=== PATIENT | male | born 1960 | race Caucasian/White ===

== ENCOUNTER 2023-03-04 20:04 | Inpatient (IN) | payer BC ==
[2023-03-04] MEDS ORDERED: ASPIRIN 81 MG PO STA (20:14)
[2023-03-04] MEDS ORDERED: SODIUM CHLORIDE 0.9% 1,000 ML IV STA (20:14)
--- NOTE | 2023-03-04 20:18 | ED ---
Chest Pain HPI - General Source: patient, EMS, RN notes reviewed Mode of arrival: EMS - History of Present Illness MD Complaint: chest pain <Oz Kothari - Last Filed: 03/04/23 20:54> <Cong Lindsey - Last Filed: 03/04/23 23:02> - General Stated Complaint: Dizziness, Bradycardia Time Seen by Provider: 03/04/23 20:04 - History of Present Illness Initial Comments: 62-year-old male with a benign past medical history other than smoking and he states he was told he had some type of AV block on his EKG 10 years ago but never diagnosed with official heart or lung disease who states he had the onset after eating around 3 PM today of not feeling well he states he fell he had a low heart rate had some chest tightness are dull chest pain with dizziness he states the pain felt almost like he had squeezing-type pain 6/10 severity does seem to radiate from both inner arms across his chest. No definitive shortness of breath with it EMS was finally called he was found have a blood pressure 93/54. Pale heart rate was in the 50s but did dip down to 48. Glucose level is 153. Of note patient states earlier today he just didn't feel well he has a blood pressure machine at home he had a heart rate in the 40s with an adequate blood pressure. He was given 500 mL of saline and route no aspirin or nitro given. He states he still has pain is 5-6/10 severity repeat blood pressure here was adequate. (Oz Kothari) - Related Data Home Medications Medication Instructions Recorded Confirmed Ascorbic Acid [Vitamin C] 1,000 mg PO HS 03/04/23 03/04/23 Aspirin EC [Ecotrin Low Dose] 81 mg PO HS 03/04/23 03/04/23 Cyanocobalamin (Vitamin B-12) 1,000 mcg PO HS 03/04/23 03/04/23 [Vitamin B-12] [place]-3/Dha/Epa/Fish Oil [Fish Oil 1 cap PO HS 03/04/23 03/04/23 1,000 mg Softgel] Psyllium Husk [Metamucil] 0.4 gm PO HS 03/04/23 03/04/23 Simvastatin [Zocor] 20 mg PO HS 03/04/23 03/04/23 Allergies Allergy/AdvReac Type Severity Reaction Status Date / Time Penicillins AdvReac Nausea & Verified 03/04/23 21:27 Vomiting & Diarrhea Review of Systems ROS Other: All systems not noted in ROS Statement are negative. <TayeOz - Last Filed: 03/04/23 20:54> ROS Other: All systems not noted in ROS Statement are negative. <Cong Lindsey - Last Filed: 03/04/23 23:02> ROS Statement: Those systems with pertinent positive or pertinent negative responses have been documented in the HPI. EKG Findings - EKG Results: EKG: interpreted by ERMD (EKG interpreted by me sinus bradycardia 58 first- degree AV block MO interval 212 QRS duration 102 QT since QTC 461/434 evidence of Q waves in inferior leads this correlates with the one sent from EMS.) <TayeOz - Last Filed: 03/04/23 20:54> General Exam General appearance: alert, anxious Head exam: Present: atraumatic, normocephalic, normal inspection Eye exam: Present: normal appearance, PERRL, EOMI. Absent: scleral icterus, conjunctival injection, periorbital swelling ENT exam: Present: normal exam, mucous membranes moist Neck exam: Present: normal inspection, full ROM, other (Mode stridor JVD or bruits). Absent: tenderness, meningismus, lymphadenopathy Respiratory exam: Present: normal lung sounds bilaterally. Absent: respiratory distress, wheezes, rales, rhonchi, stridor, chest wall tenderness Cardiovascular Exam: Present: regular rate, normal rhythm, normal heart sounds. Absent: systolic murmur, diastolic murmur, rubs, gallop, clicks GI/Abdominal exam: Present: soft, normal bowel sounds. Absent: distended, tenderness, guarding, rebound, rigid, bruit, pulsatile mass Extremities exam: Present: normal inspection, full ROM, normal capillary refill. Absent: tenderness, pedal edema, joint swelling, calf tenderness Back exam: Present: normal inspection Neurological exam: Present: alert, oriented X3, CN II-XII intact Psychiatric exam: Present: normal affect, normal mood Skin exam: Present: warm, dry, intact, normal color. Absent: rash <TayeOz - Last Filed: 03/04/23 20:54> - General Exam Comments Initial Comments: This is a well-developed well-nourished awake alert oriented 4 male (Oz Kothari) Course <Oz Kothari - Last Filed: 03/04/23 20:54> Vital Signs 03/04/23 03/04/23 03/04/23 20:17 20:30 21:02 Temperature 98 F Pulse Rate 52 L 53 L 62 Respiratory 16 15 14 Rate Blood Pressure 137/87 125/78 117/71 O2 Sat by Pulse 98 97 95 Oximetry 03/04/23 03/04/23 22:12 22:35 Temperature Pulse Rate 54 L 57 L Respiratory 14 15 Rate Blood Pressure 117/73 126/80 O2 Sat by Pulse 96 95 Oximetry - Reevaluation(s) Reevaluation #1: 03/04/23 20:54 Patient's care will be endorsed to Dr. Lindsey in her shift change (Oz Kothari) Chest Pain MDM <Cong Lindsey - Last Filed: 03/04/23 23:02> - MDM The patient was signed out to me from Dr. Kothari. The patient was signed out pending completion of the laboratory workup. Please see the previous note for HPI. Was pt. sent in by a medical professional or institution (, PA, ADVERTISING SUPERVISOR, urgent care, hospital, or snf...) When possible be specific @ -No Did you speak to anyone other than the patient for history (EMS, parent, family, police, friend...)? What history was obtained from this source @ -No Did you review nursing and triage notes (agree or disagree)? Why? @ -I reviewed and agree with nursing and triage notes Were old charts reviewed (outside hosp., previous admission, EMS record, old EKG, old radiological studies, urgent care reports/EKG's, snf records)? Report findings @ -No old charts were reviewed Differential Diagnosis (chest pain, altered mental status, abdominal pain women, abdominal pain men, vaginal bleeding, weakness, fever, dyspnea, syncope, headache, dizziness, GI bleed, back pain, seizure, CVA, palpatations, mental health)? @ -ACS, pneumonia, pneumothorax EKG interpreted by me (3pts min.). @ -As above X-rays interpreted by me (1pt min.). @ -Chest x-ray was obtained and was interpreted by myself showing no acute cardiopulmonary process CT interpreted by me (1pt min.). @ -None done U/S interpreted by me (1pt. min.). @ -None done What testing was considered but not performed or refused? (CT, X-rays, U/S, labs)? Why? @ -None What meds were considered but not given or refused? Why? @ -None Did you discuss the management of the patient with other professionals (professionals i.e. , PA, ADVERTISING SUPERVISOR, lab, RT, psych nurse, social science professor, information clerk automobile club, teacher, surveillance officer, shelter case manager)? Give summary @ -No Was smoking cessation discussed for >3mins.? @ -Yes Was critical care preformed (if so, how long)? @ -No Were there social determinants of health that impacted care today? How? (Homelessness, low income, unemployed, alcoholism, drug addiction, transportation, low edu. Level, literacy, decrease access to med. care, usp, rehab)? @ -No Was there de-escalation of care discussed even if they declined (Discuss DNR or withdrawal of care, Hospice)? DNR status @ -No What co-morbidities impacted this encounter? (DM, HTN, Smoking, COPD, CAD, Cancer, CVA, ARF, Chemo, Hep., AIDS, mental health diagnosis, sleep apnea, morbid obesity)? @ -Hypertension, previous cardiac stenting Was patient admitted / discharged? Hospital course, mention meds given and route, prescriptions, significant lab abnormalities, going to OR and other pertinent info. @ -The patient was seen and evaluated emergency department. Physical exam, the patient was resting in bed without any acute distress. The patient was initially seen by Dr. Kothari and was signed out pending completion of laboratory workup. Initial laboratory workup showed an elevated troponin but was reported to be hemolyzed therefore a repeat troponin was obtained and was significantly more elevated. Due to this and in the setting of the patient's elevated troponin, the patient was started on IV heparin and treated as an NSTEMI. The patient will be admitted for further workup and evaluation with cardiology on consult. The patient was agreeable to this. The patient was admitted in stable condition. Undiagnosed new problem with uncertain prognosis? @ -No Drug Therapy requiring intensive monitoring for toxicity (Heparin, Nitro, Insulin, Cardizem)? @ -Heparin Were any procedures done? @ -No Diagnosis/symptom? @ -NSTEMI Acute, or Chronic, or Acute on Chronic? @ -Acute Uncomplicated (without systemic symptoms) or Complicated (systemic symptoms)? @ -Complicated Side effects of treatment? @ -No Exacerbation, Progression, or Severe Exacerbation? @ -No Poses a threat to life or bodily function? How? (Chest pain, [place], [place], pneumonia, PE, COPD, DKA, ARF, appy, cholecystitis, CVA, Diverticulitis, Homicidal, Suicidal, threat to staff... and all critical care pts) @ -Yes, NSTEMI can lead to permanent cardiac damage and possible . (Cong Lindsey) Disposition <Oz Kothari - Last Filed: 03/04/23 20:54> Is patient prescribed a controlled substance at d/c from ED?: No Time of Disposition: 22:30 Decision to Admit Reason: Admit from EC Decision Date: 03/04/23 Decision Time: 22:30 <Cong Lindsey - Last Filed: 03/04/23 23:02> Clinical Impression: NSTEMI (non-ST elevated myocardial infarction) Disposition: ADMITTED IP TO THIS [facility] Condition: Stable Referrals: Aries Uriarte DO [Primary Care Provider] - 1-2 days
[2023-03-04] MEDS: NITROGLYCERIN SL TABS 0.4 MG TAB SUBLINGUAL STA ×3 (20:24→21:02)
[2023-03-04 21:02] LABS: ALT 26 U/L (4-49); African American GFR (CKD) >90 (>60 ml/min/1.73 sqM); Anion Gap 4 mmol/L; Blood Urea Nitrogen 18 mg/dL (9-20); Calcium 9.1 mg/dL (8.4-10.2); Carbon Dioxide 29 mmol/L (22-30); Chloride 104 mmol/L (98-107); Lipase 51 U/L (23-300); Non-African American GFR(CKD) >90 (>60 ml/min/1.73 sqM); Sodium 137 mmol/L (137-145)
[2023-03-04 21:07] LABS: Glucose 124 mg/dL (74-99)
[2023-03-04 21:08] LABS: AST 56 U/L (17-59); Albumin 4.9 g/dL (3.5-5.0); Alkaline Phosphatase 35 U/L (38-126); Magnesium 2.3 mg/dL (1.6-2.3); Total Bilirubin 1.5 mg/dL (0.2-1.3)
--- NOTE | 2023-03-04 21:29 | XR ---
EXAMINATION TYPE: XR chest 2V DATE OF EXAM: 03/04/2023 9:25 PM COMPARISON: None TECHNIQUE: XR chest 2V . CLINICAL INDICATION:Male, 62 years old with history of Chest Pain; FINDINGS: Lungs/Pleura: There is no evidence of pleural effusion, focal consolidation, or pneumothorax. Pulmonary vascularity: Unremarkable. Heart/mediastinum: Cardiomediastinal silhouette is unremarkable. Musculoskeletal: No acute osseous pathology. Degenerative changes of the right acromioclavicular join t. IMPRESSION: No acute cardiopulmonary disease/process.
[2023-03-04 21:35] LABS: Basophils % (A) 0 %; Eosinophils # (A) 0.1 k/uL (0-0.7); Eosinophils % (A) 1 %; HCT 47.2 % (39.0-53.0); HGB 15.8 gm/dL (13.0-17.5); Lymphocytes # (A) 1.4 k/uL (1.0-4.8); Lymphocytes % (A) 14 %; MCH 30.6 pg (25.0-35.0); MCHC 33.4 g/dL (31.0-37.0); MCV 91.7 fL (80.0-100.0); Mean Platelet Volume 9.4; Monocytes # (A) 0.4 k/uL (0-1.0); Monocytes % (A) 4 %; Neutrophils % (A) 79 %; Platelet Count 159 k/uL (150-450); RBC 5.15 m/uL (4.30-5.90); RDW 13.1 % (11.5-15.5); WBC 10.1 k/uL (3.8-10.6)
[2023-03-04 21:52] LABS: Partial Thromboplastin Time 22.2 sec (22.0-30.0); Prothrombin Time 10.7 sec (9.0-12.0)
[2023-03-04] MEDS ORDERED: HEPARIN SODIUM 1,000 UN/ML (10ML VL) IV ONE (22:36)
[2023-03-04] MEDS ORDERED: HEPARIN SODIUM 1,000 UN/ML (10ML VL) IV PRN (22:36)
[2023-03-04] MEDS ORDERED: NALOXONE 0.4 MG/ML 1 ML VIAL IV PRN (22:46)
[2023-03-04] MEDS: HEPARIN SOD,PORK IN 0.45% NACL 25,000 UNIT in 0.45% NACL 1 250ML.BAG IV SCH (22:52)
[2023-03-05 02:02] LABS: African American GFR (CKD) >90 (>60 ml/min/1.73 sqM); Anion Gap 6 mmol/L; Blood Urea Nitrogen 16 mg/dL (9-20); Calcium 8.3 mg/dL (8.4-10.2); Carbon Dioxide 25 mmol/L (22-30); Chloride 111 mmol/L (98-107); Glucose 134 mg/dL (74-99); Non-African American GFR(CKD) >90 (>60 ml/min/1.73 sqM); Potassium 4.1 mmol/L (3.5-5.1); Sodium 142 mmol/L (137-145)
[2023-03-05 08:29] LABS: Basophils % (A) 0 %; Eosinophils # (A) 0.2 k/uL (0-0.7); Eosinophils % (A) 2 %; HCT 41.1 % (39.0-53.0); HGB 13.4 gm/dL (13.0-17.5); Lymphocytes # (A) 2.4 k/uL (1.0-4.8); Lymphocytes % (A) 23 %; MCH 30.4 pg (25.0-35.0); MCHC 32.6 g/dL (31.0-37.0); MCV 93.3 fL (80.0-100.0); Mean Platelet Volume 8.6; Monocytes # (A) 0.6 k/uL (0-1.0); Monocytes % (A) 6 %; Neutrophils % (A) 67 %; Platelet Count 177 k/uL (150-450); RDW 13.2 % (11.5-15.5); WBC 10.4 k/uL (3.8-10.6)
[2023-03-05] MEDS ORDERED: ASPIRIN 325 MG TAB PO STA (08:56)
[2023-03-05] MEDS ORDERED: ALPRAZolam 0.5 MG TAB PO PRN (08:56)
[2023-03-05] MEDS ORDERED: NITROGLYCERIN SL TABS 0.4 MG TAB SUBLINGUAL PRN (08:56)
[2023-03-05] MEDS ORDERED: ATORVASTATIN 80 MG TAB PO STA (08:56)
[2023-03-05] MEDS ORDERED: ALPRAZolam 0.25 MG TAB PO PRN (08:56)
--- NOTE | 2023-03-05 09:09 | P.CRDCN ---
History of Present Illness Consult date: 03/05/23 Consult reason: chest pain Chief complaint: NSTEMI History of present illness: History of present illness: Patient is a pleasant 62-year-old male with significant past medical history of tobacco abuse, borderline diabetes who presented with complaints of chest pressure. He denies any significant family history of heart disease. He does not follow with a specialty person currently. He does report having a prior heart c atheterization around 2007 with reported 30% blockage at that time. Yesterday he was out riding his motorcycle when he got home about 30 min later he was just sitting watching TV when he began to all the suction feel faint, diaphoretic, and developed chest pressure. He drank water and ate some food and did feel better. He then was able to go out to dinner with his family however during dinner he thought that weird feeling again, turned pale, and chest pressure returned. 911 was called and patient was brought to the emergency room. He reports he did get that feeling one more time while in the emergency department. He denies any chest pressure presently. Troponins were elevated 0.938, 1.190, 3.570. He was started on a heparin drip. Denies any bleeding issues. EKG shows sinus bradycardia 50 bpm. Rest x-ray with no acute findings. Labs reviewed: WBCs 10.1, hemoglobin 15.8, platelets 159, d-dimer was negative, sodium 142, potassium 4.1, creatinine 0.67, BNP is 107. REVIEW OF SYSTEMS: No fever or chills. No cough or expectoration. No diaphoresis. Patient denies headache, dizziness, blurred vision, double vision. Patient denies any stomach discomfort. No nausea, vomiting. No hematochezia. No hematemesis. Denies any black stools or blood in his stools. Denies dysuria or hematuria. No muscle weakness or numbness. No chest pain or pressure. PHYSICAL EXAMINATION: This is a 62-year-old male in no apparent distress at the time of my examination. HEENT: Head is atraumatic, normocephalic. Pupils are equal, round. Sclerae anicteric. Conjunctivae are clear. Mucous membranes of the mouth are moist. Neck is supple. There is no jugular venous distention. No carotid bruit is heard. CHEST EXAMINATION: Lungs are clear to auscultation. No chest wall tenderness is noted on palpation or with deep breathing. HEART EXAMINATION: Heart regular rate and rhythm. S1, S2 heard. No murmurs, gallops or rub. ABDOMEN: Soft, nontender. Bowel sounds are heard. EXTREMITIES: 2+ peripheral pulses with no evidence of peripheral edema and no calf tenderness noted. NEUROLOGIC EXAMINATION: Patient is awake, alert and oriented x3. IMPRESSION AND PLAN: NSTEMI, concerning for unstable angina Elevated troponins Chest pressure Tobacco abuse Borderline diabetes PLAN: His symptoms are concerning for unstable angina, we will plan to proceed with heart catheterization this morning to further evaluate and intervene as needed. Risks and benefits reviewed with patient and agrees to proceed with heart cath. Continue heparin drip at this time. We will check an echocardiogram to evaluate heart function and structure. Nothing by mouth. Further recommendations following procedure. Spouse at bedside and updated on plan of care as well. I am dictating on behalf of Dr. Wes Castillo's history/physical and assessment/plan. Past Medical History Past Medical History: Chest Pain / Angina, Hyperlipidemia, Sleep Apnea/CPAP/BIPAP History of Any Multi-Drug Resistant Organisms: None Reported Past Surgical History: Orthopedic Surgery Past Psychological History: No Psychological Hx Reported Smoking Status: Current every day smoker Past Alcohol Use History: Rare Past Drug Use History: None Reported - Past Family History Father Family Medical History: CVA/TIA Mother Family Medical History: Dementia Medications and Allergies Home Medications Medication Instructions Recorded Confirmed Type Ascorbic Acid [Vitamin C] 1,000 mg PO HS 03/04/23 03/04/23 History Aspirin EC [Ecotrin Low Dose] 81 mg PO HS 03/04/23 03/04/23 History Cyanocobalamin (Vitamin B-12) 1,000 mcg PO HS 03/04/23 03/04/23 History [Vitamin B-12] [place]-3/Dha/Epa/Fish Oil [Fish Oil 1 cap PO HS 03/04/23 03/04/23 History 1,000 mg Softgel] Psyllium Husk [Metamucil] 0.4 gm PO HS 03/04/23 03/04/23 History Simvastatin [Zocor] 20 mg PO HS 03/04/23 03/04/23 History Allergies Allergy/AdvReac Type Severity Reaction Status Date / Time Penicillins AdvReac Nausea & Verified 03/04/23 21:27 Vomiting & Diarrhea Physical Exam Vitals: Vital Signs Temp Pulse Pulse Resp BP BP Pulse Ox 03/05/23 07:57 97 03/05/23 04:00 98.3 F 53 L 18 118/61 98 03/05/23 00:00 98.5 F 56 L 18 128/67 97 03/04/23 22:35 57 L 15 126/80 95 03/04/23 22:12 54 L 14 117/73 96 03/04/23 21:02 62 14 117/71 95 03/04/23 20:30 53 L 15 125/78 97 03/04/23 20:17 98 F 52 L 16 137/87 98 Intake and Output 03/04/23 03/05/23 03/05/23 22:59 06:59 14:59 Other: Voiding Method Toilet # Voids 0 Weight 95.254 kg 95.254 kg Results 03/05/23 07:19 03/05/23 01:19 Cardiac Enzymes 03/04/23 03/04/23 03/04/23 Range/Units 20:30 20:30 21:50 AST 56 (17-59) U/L Troponin I 0.938 H* 1.190 H* (0.000-0.034) ng/mL 03/05/23 Range/Units 01:19 AST (17-59) U/L Troponin I 3.570 H* (0.000-0.034) ng/mL Coagulation 03/04/23 Range/Units 20:30 PT 10.7 (9.0-12.0) sec APTT 22.2 (22.0-30.0) sec CBC 03/04/23 03/05/23 Range/Units 20:30 07:19 WBC 10.1 10.4 (3.8-10.6) k/uL RBC 5.15 4.40 (4.30-5.90) m/uL Hgb 15.8 13.4 (13.0-17.5) gm/dL Hct 47.2 41.1 (39.0-53.0) % Plt Count 159 177 (150-450) k/uL Comprehensive Metabolic Panel 03/04/23 03/05/23 Range/Units 20:30 01:19 Sodium 137 142 (137-145) mmol/L Potassium 6.0 H 4.1 (3.5-5.1) mmol/L Chloride 104 111 H (98-107) mmol/L Carbon Dioxide 29 25 (22-30) mmol/L BUN 18 16 (9-20) mg/dL Creatinine 0.63 L 0.67 (0.66-1.25) mg/dL Glucose 124 H 134 H (74-99) mg/dL Calcium 9.1 8.3 L (8.4-10.2) mg/dL AST 56 (17-59) U/L ALT 26 (4-49) U/L Alkaline Phosphatase 35 L (38-126) U/L Total Protein 8.0 (6.3-8.2) g/dL Albumin 4.9 (3.5-5.0) g/dL Current Medications Generic Name Dose Route Start Last Admin Trade Name Freq PRN Reason Stop Dose Admin Alprazolam 0.25 mg 03/05/23 08:56 Alprazolam 0.25 Mg Tab PO Q6HR PRN Mild Anxiety Alprazolam 0.5 mg 03/05/23 08:56 Alprazolam 0.5 Mg Tab PO Q6HR PRN Moderate Anxiety Heparin Sodium (Porcine) 0 unit 03/04/23 22:36 Heparin Sodium 1,000 Un/Ml (10ml Vl) IV PER PROTOCOL PRN Low PTT Protocol Heparin Sodium/Sodium Chloride 250 mls @ 17.146 mls/hr 03/04/23 22:45 03/04/23 22:52 25,000 unit/ Sodium Chloride IV 18 units/kg/hr .[id number] RUDY 17.146 mls/hr Administration Protocol 18 UNITS/KG/HR Heparin Sodium (Porcine) 10, 1,001 mls @ 999 mls/hr 03/06/23 07:00 000 unit/ Sodium Chloride IRRIGATION 03/06/23 23:00 ONCE PRN INTRA-OP Heparin Sodium (Porcine) 2,500 250.5 mls @ 250 mls/hr 03/06/23 07:00 unit/ Sodium Chloride IRRIGATION 03/06/23 23:00 ONCE PRN INTRA-OP Naloxone HCl 0.2 mg 03/04/23 22:46 Naloxone 0.4 Mg/Ml 1 Ml Vial IV Q2M PRN Opioid Reversal Nitroglycerin 0.4 mg 03/05/23 08:56 Nitroglycerin Sl Tabs 0.4 Mg Tab SUBLINGUAL Q5M PRN Chest Pain Intake and Output 03/04/23 03/05/23 03/05/23 22:59 06:59 14:59 Other: Voiding Method Toilet # Voids 0 Weight 95.254 kg 95.254 kg 03/05/23 07:19 03/05/23 01:19
[2023-03-05 09:28] LABS: Glucose,Whole Blood 116 mg/dL (70-110)
[2023-03-05] MEDS ORDERED: fentaNYL (PF) 50 MCG/ML 2 ML AMP ONE (10:03)
[2023-03-05] MEDS ORDERED: HEPARIN SODIUM 1,000 UN/ML (10ML VL) ONE (10:03)
[2023-03-05] MEDS ORDERED: VERAPAMIL 2.5 MG/ML 2 ML AMP ONE (10:03)
[2023-03-05] MEDS ORDERED: IV FLUID CONTINUATION 1,000 ML IV ONE (10:16)
[2023-03-05] MEDS: MIDAZOLAM 2 MG/2 ML VIAL IV ONE ×2 (10:18→11:21)
[2023-03-05] MEDS: fentaNYL (PF) 50 MCG/ML 2 ML AMP IV ONE ×3 (10:21→11:23)
[2023-03-05] MEDS ORDERED: LIDOCAINE 1% INJ 10MG/ML (5 ML VIAL-PF) SQ ONE (10:23)
[2023-03-05] MEDS ORDERED: VERAPAMIL SYRINGE (5 MG/10 ML) INTRAARTER ONE (10:25)
[2023-03-05] MEDS ORDERED: PRASUGREL 10 MG TAB ONE ×2 (10:35)
[2023-03-05] MEDS ORDERED: PRASUGREL 10 MG TAB PO ONE (10:38)
[2023-03-05] MEDS: NITROGLYCERIN 1000MCG/10ML SYRINGE INTRACORON ONE ×4 (10:43→11:01)
[2023-03-05] MEDS: niCARdipine Syringe (1,000 mcg/10 mL) INTRACORON ONE ×2 (11:04→11:06)
--- NOTE | 2023-03-05 11:08 | P.HPIM ---
History of Present Illness H&P Date: 03/05/23 Chief Complaint: Chest pain This is a 62-year-old gentleman with past medical history significant for chest pain, angina, hyperlipidemia, obesity, obstructive sleep apnea -wears CPAP, nicotine dependence, denies family history of CAD, presented to the ER with chest pain. Reports he rode his motorcycle to the [place] [employer], returned home and shortly thereafter while sitting developed lightheadedness, diaphoresis and midsternal chest pressure/heaviness radiating to both left and right arms. Reports symptoms improved after he ate lightly and drank , then he proceeded to go out to dinner with his family and symptoms reoccured. EMS called a patient transporter to the ER. EKG reported sinus bradycardia, heart rate 50, troponin 0.938, 1.190, 3.570, 10.400, 11.900. Heparin drip initiated. ProBNP 107, Chest x-ray reported nonacute.Maintaining O2 sats in the high 90s on room air. Afebrile, WBC 10.4. Hemoglobin 13.4, platelets 177, d-dimer negative-0.33, elec trolytes and renal function stable. Denies any nausea vomiting or diarrhea. Denies any abdominal pain. Denies fever,chills, congestion or productive cough. Denies blurred or double vision. No headache.No hematochezia. No hematemesis. Denies any black stools/ blood in his stools. Denies dysuria or hematuria. Denies muscle weakness or numbness. Currently denies chest pain, chest pressure. Evaluated by cardiology and patient is scheduled for cardiac catheterization. Review of Systems ROS Statement: Those systems with pertinent positive or pertinent negative responses have been documented in the HPI. ROS Other: All systems not noted in ROS Statement are negative. Past Medical History Past Medical History: Chest Pain / Angina, Hyperlipidemia, Sleep Apnea/CPAP/BIPAP History of Any Multi-Drug Resistant Organisms: None Reported Past Surgical History: Orthopedic Surgery Past Psychological History: No Psychological Hx Reported Smoking Status: Current every day smoker Past Alcohol Use History: Rare Past Drug Use History: None Reported - Past Family History Father Family Medical History: CVA/TIA Mother Family Medical History: Dementia Medications and Allergies Home Medications Medication Instructions Recorded Confirmed Type Ascorbic Acid [Vitamin C] 1,000 mg PO HS 03/04/23 03/04/23 History Aspirin EC [Ecotrin Low Dose] 81 mg PO HS 03/04/23 03/04/23 History Cyanocobalamin (Vitamin B-12) 1,000 mcg PO HS 03/04/23 03/04/23 History [Vitamin B-12] [place]-3/Dha/Epa/Fish Oil [Fish Oil 1 cap PO HS 03/04/23 03/04/23 History 1,000 mg Softgel] Psyllium Husk [Metamucil] 0.4 gm PO HS 03/04/23 03/04/23 History Simvastatin [Zocor] 20 mg PO HS 03/04/23 03/04/23 History Allergies Allergy/AdvReac Type Severity Reaction Status Date / Time Penicillins AdvReac Nausea & Verified 03/04/23 21:27 Vomiting & Diarrhea Physical Exam Vitals: Vital Signs Temp Pulse Pulse Resp BP BP Pulse Ox 03/05/23 08:00 98.2 F 55 L 110/65 96 03/05/23 07:57 97 03/05/23 04:00 98.3 F 53 L 18 118/61 98 03/05/23 00:00 98.5 F 56 L 18 128/67 97 03/04/23 22:35 57 L 15 126/80 95 03/04/23 22:12 54 L 14 117/73 96 03/04/23 21:02 62 14 117/71 95 03/04/23 20:30 53 L 15 125/78 97 03/04/23 20:17 98 F 52 L 16 137/87 98 Intake and Output 03/04/23 03/05/23 03/05/23 22:59 06:59 14:59 Other: Voiding Method Toilet # Voids 0 Weight 95.254 kg 95.254 kg PHYSICAL EXAM: VITAL SIGNS: As above GENERAL: Sitting up in bed, no acute distress HEENT: Normocephalic, atraumatic, Conjunctivae normal. eyes normal. NECK: Supple, No JVD. No thyroid enlargement. No LNs CARDIOVASCULAR: S1, S2 regular. No murmur RESPIRATION: Breath sounds diminished in the bases. No rhonchi or crackles. No bronchial breathing. ABDOMEN: Soft, nontender . No guarding. no masses palpable. No ascites, No hepatosplenomegaly.Bowel sounds heard. LEGS: No edema. no swelling PSYCHIATRY: Alert and oriented X3, mood and affect normal. NERVOUS SYSTEM: Cranial N 2-12 grossly normal. No focal deficits. Strength and sensation grossly intact. Skin: Warm and dry, no rash. Results CBC & Chem 7: 03/05/23 07:19 03/05/23 01:19 Labs: Abnormal Lab Results - Last 24 Hours (Table) 03/04/23 03/04/23 03/04/23 Range/Units 20:30 20:30 20:30 Neutrophils # 8.0 H (1.3-7.7) k/uL APTT (22.0-30.0) sec Potassium 6.0 H (3.5-5.1) mmol/L Chloride (98-107) mmol/L Creatinine 0.63 L (0.66-1.25) mg/dL Glucose 124 H (74-99) mg/dL POC Glucose (mg/dL) (70-110) mg/dL Calcium (8.4-10.2) mg/dL Total Bilirubin 1.5 H (0.2-1.3) mg/dL Alkaline Phosphatase 35 L (38-126) U/L Troponin I 0.938 H* (0.000-0.034) ng/mL 03/04/23 03/05/23 03/05/23 Range/Units 21:50 01:19 01:19 Neutrophils # (1.3-7.7) k/uL APTT (22.0-30.0) sec Potassium (3.5-5.1) mmol/L Chloride 111 H (98-107) mmol/L Creatinine (0.66-1.25) mg/dL Glucose 134 H (74-99) mg/dL POC Glucose (mg/dL) (70-110) mg/dL Calcium 8.3 L (8.4-10.2) mg/dL Total Bilirubin (0.2-1.3) mg/dL Alkaline Phosphatase (38-126) U/L Troponin I 1.190 H* 3.570 H* (0.000-0.034) ng/mL 03/05/23 03/05/23 03/05/23 Range/Units 07:19 07:19 09:12 Neutrophils # (1.3-7.7) k/uL APTT 108.9 H* (22.0-30.0) sec Potassium (3.5-5.1) mmol/L Chloride (98-107) mmol/L Creatinine (0.66-1.25) mg/dL Glucose (74-99) mg/dL POC Glucose (mg/dL) (70-110) mg/dL Calcium (8.4-10.2) mg/dL Total Bilirubin (0.2-1.3) mg/dL Alkaline Phosphatase (38-126) U/L Troponin I 10.400 H* 11.900 H* (0.000-0.034) ng/mL 03/05/23 Range/Units 09:26 Neutrophils # (1.3-7.7) k/uL APTT (22.0-30.0) sec Potassium (3.5-5.1) mmol/L Chloride (98-107) mmol/L Creatinine (0.66-1.25) mg/dL Glucose (74-99) mg/dL POC Glucose (mg/dL) 116 H (70-110) mg/dL Calcium (8.4-10.2) mg/dL Total Bilirubin (0.2-1.3) mg/dL Alkaline Phosphatase (38-126) U/L Troponin I (0.000-0.034) ng/mL Thrombosis Risk Factor Assmnt - Choose All That Apply Any of the Below Risk Factors Present?: Yes Each Factor Represents 1 point: Obesity (BMI >25) Each Risk Factor Represents 2 Points: Age 61-74 years Thrombosis Risk Factor Assessment Total Risk Factor Score: 3 Thrombosis Risk Factor Assessment Level: Moderate Risk Assessment and Plan Assessment: NSTEMI, with possible [place], in a patient with radiating chest pressure, elevated troponins, bradycardia. Ongoing nicotine dependence Obesity, BMI 30.1 Obstructive sleep apnea Plan: Continue on current medication regime ,monitoring and symptomatic treatment. Anticoagulated on heparin drip. NPO,Cardiac catheterization pending. Prior A1c in November 2021 5.8, repeat level pending. Smoking cessation reinforced. The impression and plan of care has been dictated as directed. : I performed a history and examination of this patient, discussed the same with the dictator. I agree with the dictator's note ,documented as a scribe. Any additional findings or plans will be noted.
[2023-03-05] MEDS ORDERED: IOPAMIDOL-370 200ML BTL INJ ONE (11:23)
[2023-03-05] MEDS ORDERED: ZOLPIDEM 5 MG TAB PO PRN (11:57)
[2023-03-05] MEDS ORDERED: MAG HYDROX/AL HYDROX/SIMETH 30 ML CUP PO PRN (11:57)
[2023-03-05] MEDS ORDERED: RX INFO: IV CONTRAST WAS GIVEN 1 EACH MISC MISCELLANE PRN (11:57)
[2023-03-05] MEDS ORDERED: ATROPINE SULFATE 0.1 MG/ML 10ML SYRINGE IV PRN (11:57)
[2023-03-05] MEDS ORDERED: SODIUM CHLORIDE 0.9% 1,000 ML in EMPTY BAG 1 BAG IV SCH (12:00)
[2023-03-05] MEDS: HEPARIN SOD,PORK IN 0.45% NACL 25,000 UNIT in 0.45% NACL 1 250ML.BAG IV SCH (15:30)
[2023-03-05] MEDS ORDERED: ATORVASTATIN 80 MG TAB PO SCH (21:00)
--- NOTE | 2023-03-05 21:03 | P.PRCINT ---
Percutaneous Coronary Int. - Percutaneous Coronary Intervention Percutaneous Coronary Intervention: PROCEDURES PERFORMED: Left heart catheterization, bilateral coronary angiography, PCI proximal to mid RCA with 3.5 x 38mm Xience JONATHAN, post dilated with a 4.0 NC balloon, IVUS RCA, iFR LAD INDICATION: NSTEMI CONSENT:I have discussed the risks, benefits and alternative therapies for the above-mentioned procedure and for both sedation/analgesia as well as necessary blood product administration, if indicated, as they pertain to this patient. The patient has indicated understanding and acceptance of the risks and procedures discussed. PROCEDURE: After the risks, benefits and alternatives of the above mentioned pr ocedure explained in detail with the patient, informed consent was obtained. Patient was taken to the catheterization lab and prepped and draped in usual fashion. 1% lidocaine was used to anesthetize the right radial artery. A 6- Yemeni sheath was placed in the right radial artery using modified Seldinger technique. Left coronary angiography was performed with a 5-Yemeni JL 3.5 catheter and right coronary angiography was performed with a 5-Yemeni JR5 catheter in various views. A 5-Yemeni FR5 catheter was inserted into the left ventricle and pressure measurements were obtained. The decision was made to perform PCI of the RCA. Heparin was given. A 6-Yemeni AL 0.75 guide was used to engage the RCA. A 0.014 BMW wire was advanced to the distal RCA. Predilation was performed with a 3.0 x 12 balloon then with a 3.5 NC balloon. There was diffuse disease and therefore felt best to treat the entire proximal to mid RCA. Next a 3.5 x 38mm Xience JONATHAN was placed. The stent was post dilated with a 4.0 NC balloon. Patient did have some chest discomfort felt related to microvascular dysfunction and jailing of a small marginal branch. IVUS showed well expanded stent with reference vessel 3.5-4.0mm, no dissection. Final angiograms were performed. Preintervention there was 99% stenosis and ALEJANDRA 3 flow and post intervention there was < 10% stenosis and ALEJANDRA 3 flow. Given indeterminate LAD lesion, the decision was made to perform iFR of the LAD. Using the 5FR FL 3.5 catheter, a 0.014 pressure wire was advanced into the left main and normalized. It was then advanced 1 cm distal to the mid LAD lesion and iFR was abnormal at 0.69. The wire was removed. The right radial sheath was removed and a TR band was placed with hemostasis achieved. The patient tolerated the procedure well. Patient was transported back to the post catheterization holding area in stable condition. Conscious Sedation: Patient was monitored under the direct supervision of myself for conscious sedation using Versed and fentanyl for a total duration of 60 minutes HEMODYNAMICS: Ao: 121/67 LV: 118/5, LVEDP 17 SELECTIVE CORONARY ARTERIOGRAPHY: LEFT MAIN: The left main is a large caliber vessel which bifurcates into the LAD and circumflex. There is no significant stenosis. LEFT ANTERIOR DESCENDING CORONARY ARTERY: LAD is a large caliber vessel which wraps around to the apex. There is a mid LAD 75-80% stenosis followed by mild ectasia before diagonal 1 bifurcation. There is mid to distal LAD 60-70% stenosis. LEFT CIRCUMFLEX CORONARY ARTERY: Left circumflex is a moderate caliber vessel with mild 20-30% stenosis RIGHT CORONARY ARTERY: The right coronary artery is a large caliber vessel which gives off a PDA and PLV branch and is the dominant vessel. There is a proximal 60-70% stenosis as well as a mid RCA 99% stenosis. Otherwise there is midl proximal diffuse disease and mild luminal irregularities of the remainder of the RCA. FINAL IMPRESSION: 1. CAD as described above including 99% mid RCA, 75% mid LAD, 60-70% mid to distal LAD, 30% circumflex stenosis 2. S/p PCI proximal to mid RCA with 3.5 x 38mm Xience JONATHAN, post dilated with a 4.0 NC balloon 3. Mildly elevated left sided filling pressures 4. iFR abnormal LAD PLAN: 1. Aggressive risk factor modification per most recent ACC/AHA guidelines. 2. Continue dual antiplatelets with aspirin and Effient for 12 months 3. Tobacco cessation 4. Staged PCI of LAD
[2023-03-06] MEDS ORDERED: HEPARIN SODIUM,PORCINE 10,000 UNIT in SODIUM CHLORIDE 0.9% 1,000 ML IRRIGATION PRN (07:00)
[2023-03-06] MEDS ORDERED: HEPARIN SODIUM,PORCINE 2,500 UNIT in SODIUM CHLORIDE 0.9% 250 ML IRRIGATION PRN (07:00)
[2023-03-06 08:18] VITALS: PULSE 60; RESP 18; TEMP 97.8
--- NOTE | 2023-03-06 08:49 | CA ---
Transthoracic Echo Report Name: Zach Pisano Age: 62 Gender: M : 1960 Exam Date: 03/05/2023 11:47 Exam Location: [facility] Ht (in): 70 Wt (lb): 210 Ordering Physician: Rosa M Arroyo Attending/Referring Phys: [facility] Teacher Lucia Nayak RDCS Procedure CPT: Indications: NSTEMI, chest pain Cardiac Hx: Technical Quality: Fair Contrast 1: Total Dose (mL): Contrast 2: Total Dose (mL): MEASUREMENTS (Male / Female) Normal Values 2D ECHO LV Diastolic Diameter PLAX 4.8 cm 4.2 - 5.9 / 3.9 - 5.3 cm LV Systolic Diameter PLAX 3.3 cm IVS Diastolic Thickness 1.2 cm 0.6 - 1.0 / 0.6 - 0.9 cm LVPW Diastolic Thickness 1.3 cm 0.6 - 1.0 / 0.6 - 0.9 cm LV Relative Wall Thickness 0.5 RV Internal Dim ED PLAX 3.0 cm LA Systolic Diameter LX 3.2 cm 3.0 - 4.0 / 2.7 - 3.8 cm LV Diastolic Volume MOD 4C 127.1 cm??? LV Systolic Volume MOD 4C 52.0 cm??? LV Ejection Fraction MOD 4C 59.1 % LV Diastolic Length 4C 9.4 cm LV Systolic Length 4C 7.3 cm LV Diastolic Volume MOD 2C 109.6 cm??? LV Systolic Volume MOD 2C 53.4 cm??? LV Ejection Fraction MOD 2C 51.2 % LV Diastolic Length 2C 10.3 cm LV Systolic Length 2C 8.7 cm LA Volume 69.5 cm??? 18 - 58 / 22 - 52 cm??? M-MODE Aortic Root Diameter MM 3.9 cm MV E Point Septal Separation 1.0 cm AV Cusp Separation MM 2.7 cm DOPPLER AV Peak Velocity 112.9 cm/s AV Peak Gradient 5.1 mmHg MV Area PHT 3.4 cm??? Mitral E Point Velocity 70.6 cm/s Mitral A Point Velocity 85.7 cm/s Mitral E to A Ratio 0.8 MV Deceleration Time 224.6 ms MV E' Velocity 7.1 cm/s Mitral E to MV E' Ratio 9.9 TR Peak Velocity 203.2 cm/s TR Peak Gradient 16.5 mmHg Right Ventricular Systolic Press 31.2 mmHg FINDINGS Left Ventricle Left ventricular ejection fraction is estimated at 50-55 %. Left ventricular cavity size normal. Mildly increased septal wall thickness. Right Ventricle Normal right ventricular size and function. Right ventricular systolic pressure within normal limits. Right Atrium Normal right atrial size. Left Atrium Moderately increased left atrial volume. Mitral Valve Structurally normal mitral valve. No mitral stenosis, regurgitation or prolapse. Aortic Valve Trileaflet aortic valve. No aortic valve stenosis or regurgitation. Tricuspid Valve Structurally normal tricuspid valve. Mild tricuspid regurgitation. Pulmonic Valve Structurally normal pulmonic valve. No pulmonic regurgitation. Pericardium Normal pericardium. No pericardial effusion. Aorta Mild aortic dilatation at the level of the sinuses of valsalva 39 mm CONCLUSIONS Normal LV and RV dimension and systolic function Normal pulmonary artery systolic pressure Normal intracardiac valves No evidence of pericardial effusion Previewed by: Dr. Zane Dockery MD (Electronically Signed) Final Date: 06 March 2023 08:48
[2023-03-06] MEDS ORDERED: PRASUGREL 10 MG TAB PO SCH (09:00)
[2023-03-06] MEDS ORDERED: ASPIRIN 81 MG PO SCH (09:00)
[2023-03-06 09:16] LABS: Basophils % (A) 0 %; Eosinophils # (A) 0.1 k/uL (0-0.7); Eosinophils % (A) 2 %; HCT 39.2 % (39.0-53.0); HGB 13.1 gm/dL (13.0-17.5); Lymphocytes # (A) 1.7 k/uL (1.0-4.8); Lymphocytes % (A) 19 %; MCHC 33.3 g/dL (31.0-37.0); MCV 90.1 fL (80.0-100.0); Mean Platelet Volume 8.6; Monocytes # (A) 0.4 k/uL (0-1.0); Monocytes % (A) 4 %; Neutrophils # (A) 6.7 k/uL (1.3-7.7); Neutrophils % (A) 74 %; Platelet Count 149 k/uL (150-450); RBC 4.35 m/uL (4.30-5.90); RDW 13.6 % (11.5-15.5); WBC 9.1 k/uL (3.8-10.6)
[2023-03-06 09:23] LABS: African American GFR (CKD) >90 (>60 ml/min/1.73 sqM); Anion Gap 7 mmol/L; Blood Urea Nitrogen 13 mg/dL (9-20); Calcium 8.4 mg/dL (8.4-10.2); Carbon Dioxide 26 mmol/L (22-30); Chloride 106 mmol/L (98-107); Glucose 144 mg/dL (74-99); Non-African American GFR(CKD) >90 (>60 ml/min/1.73 sqM); Potassium 3.9 mmol/L (3.5-5.1); Sodium 139 mmol/L (137-145)
[2023-03-06 12:00] VITALS: BP 135/81
--- NOTE | 2023-03-06 12:57 | P.PN ---
Subjective Progress Note Date: 03/06/23 History of present illness: Patient is a pleasant 62-year-old male with significant past medical history of tobacco abuse, borderline diabetes who presented with complaints of chest pressure. He denies any significant family history of heart disease. He does not follow with a solar energy engineer currently. He does report having a prior heart catheterization around 2007 with reported 30% blockage at that time. Yesterday he was out riding his motorcycle when he got home about 30 min later he was just sitting watching TV when he began to all the suction feel faint, diaphoretic, and developed chest pressure. He drank water and ate some food and did feel better. He then was able to go out to dinner with his family however during dinner he thought that weird feeling again, turned pale, and chest pressure returned. 911 was called and patient was brought to the emergency room. He reports he did get that feeling one more time while in the emergency department. He denies any chest pressure presently. Troponins were elevated 0.938, 1.190, 3.570. He was started on a heparin drip. Denies any bleeding issues. EKG shows sinus bradycardia 50 bpm. Rest x-ray with no acute findings. Labs reviewed: WB Cs 10.1, hemoglobin 15.8, platelets 159, d-dimer was negative, sodium 142, potassium 4.1, creatinine 0.67, BNP is 107. He underwent heart catheterization 03/05/23 that revealed CAD including 99% mid R CA, 75% mid LAD, 6070 percent mid to distal LAD, 30% circumflex stenosis; status post PCI proximal mid RCA. iFR abnormal in the LAD. 03/06 He is doing well, ambulatory around the unit. Chest pain resolved overnight, no further CP. Denies shortness of breath. He wants to go home. PHYSICAL EXAMINATION: This is a 62-year-old male in no apparent distress at the time of my examination. HEENT: Head is atraumatic, normocephalic. Pupils are equal, round. Sclerae anicteric. Conjunctivae are clear. Mucous membranes of the mouth are moist. Neck is supple. There is no jugular venous distention. No carotid bruit is heard. CHEST EXAMINATION: Lungs are clear to auscultation. No chest wall tenderness is noted on palpation or with deep breathing. HEART EXAMINATION: Heart regular rate and rhythm. S1, S2 heard. No murmurs, gallops or rub. ABDOMEN: Soft, nontender. Bowel sounds are heard. EXTREMITIES: 2+ peripheral pulses with no evidence of peripheral edema and no calf tenderness noted. Right radial wrist site clean dry and intact, no hematoma, no bruising, distal pulses present. NEUROLOGIC EXAMINATION: Patient is awake, alert and oriented x3. IMPRESSION AND PLAN: NSTEMI CAD status post PCI RCA Elevated troponins Chest pressure Tobacco abuse Borderline diabetes PLAN: Continue with dual antiplatelet with aspirin and Effient for 12 months. Continue Lipitor 80 mg by mouth daily. Check lipid panel. Emphasized the importance of smoking cessation. We will plan for staged PCI of the LAD as an outpatient in 1-2 weeks. Recommend off work until staged PCI completed. Avoid strenuous activity. Follow up in clinic with Dr. Castillo in 1 week. OK to [place] home from cardiology standpoint. I am dictating on behalf of Dr. Wes Castillo's history/physical and assessment/plan. Objective - Vital Signs Vital signs: Vital Signs Temp 97.8 F 03/06/23 08:17 Pulse 60 03/06/23 08:17 Resp 18 03/06/23 08:17 BP 124/67 03/06/23 08:17 Pulse Ox 96 03/06/23 08:17 FiO2 30 03/05/23 18:40 Intake & Output 03/05/23 03/06/23 03/06/23 18:59 06:59 18:59 Intake Total 1236 240 118 Balance 1236 240 118 Intake: IV 500 Intake, IV Titration 500 Amount Sodium Chloride 0.9% 1, 500 000 ml In Empty Bag 1 bag @ 80 mls/hr IV .[id number] [facility] Rx#:[id number] Oral 236 240 118 Other: Voiding Method Toilet Toilet Toilet # Voids 1 1 2 - Labs CBC & Chem 7: 03/06/23 08:19 03/06/23 08:19 Labs: Abnormal Lab Results - Last 24 Hours (Table) 03/06/23 03/06/23 Range/Units 08:19 08:19 Plt Count 149 L (150-450) k/uL Glucose 144 H (74-99) mg/dL
[2023-03-06 13:19] VITALS: BMI 30.1
--- NOTE | 2023-03-06 13:56 | P.DS ---
Providers Date of admission: 03/04/23 22:46 Expected date of discharge: 03/06/23 Attending physician: Aries Uriarte Consults: 03/04/23 22:46 Consult Physician Routine Consulting Provider: Venus Pandey Consult Reason/Comments: NSTEMI Do you want consulting provider notified?: Yes, Notify in am 03/05/23 11:58 Consult Physician Routine Consulting Provider: Venus Pandey Consult Reason/Comments: Post Interventional Patient Do you want consulting provider notified?: Already Contacted Primary care physician: Aries Uriarte Hospital Course: Final Diagnoses: NSTEMI, in a patient with radiating chest pressure, elevated troponins, bradycardia. Status post cardiac catheterization, CAD, status post PCI RCA.staged PCI of the LAD as an outpatient in 1-2 weeks. Ongoing nicotine dependence, counseled on smoking cessation Obesity, BMI 30.1 Obstructive sleep apnea Hospital course:This is a 62-year-old gentleman with past medical history significant for chest pain, angina, hyperlipidemia, obesity, obstructive sleep apnea -wears CPAP, nicotine dependence, denies family history of CAD, presented to the ER with chest pain. Reports he rode his motorcycle to the [place], returned home and shortly thereafter while sitting developed lightheadedness, diaphoresis and midsternal chest pressure/heaviness radiating to both left and right arms. Reports symptoms improved after he ate lightly and drank , then he proceeded to go out to dinner with his family and symptoms reoccured. EMS called a patient transporter to the ER. EKG reported sinus bradycardia, heart rate 50, troponin 0.938, 1.190, 3.570, 10.400, 11.900. Heparin drip initiated. ProBNP 107, Chest x-ray reported nonacute.Maintaining O2 sats in the high 90s on room air. Afebrile, WBC 10.4. Hemoglobin 13.4, platelets 177, d-dimer negative-0.33, electrolytes and renal function stable. Denies any nausea vomiting or diarrhea. Denies any abdominal pain. Denies fever,chills, congestion or productive cough. Denies blurred or double vision. No headache.No hematochezia. No hematemesis. Denies any black stools/ blood in his stools. Denies dysuria or hematuria. Denies muscle weakness or numbness. Currently denies chest pain, chest pressure. Evaluated by cardiology and patient is scheduled for cardiac catheterization. Completed cardiac catheterization, reporting CAD including 99% mid RCA, 75% mid LAD, 6070 percent mid to distal LAD, 30% circumflex stenosis; status post PCI proximal mid RCA. iFR abnormal in the LAD. Tolerated procedure well. Ambulating, tolerating exertion well. Denies any chest pain, palpitations or shortness of breath. Denies Lightheadedness, dizziness or focal deficits. Smoking cessation reinforced. Dual antiplatelet therapy with both aspirin and Effient 12 months recommended. Staged PCI of LAD being arranged outpatient in 1-2 weeks as per cardiology. Significant clinical improvement. Cleared by cardiology for discharge. Patient will be discharged home today in stable condition with guarded prognosis. The impression and plan of care has been dictated as directed. : I performed a history and examination of this patient, discussed the same with the dictator. I agree with the dictator's note ,documented as a scribe. Any additional findings or plans will be noted. Patient Condition at Discharge: Stable Plan - Discharge Summary Discharge Rx Participant: No New Discharge Prescriptions: New Prasugrel [Effient] 10 mg PO DAILY #30 tab Atorvastatin [Lipitor] 80 mg PO HS #30 tab Nitroglycerin Sl Tabs [Nitrostat] 0.4 mg SUBLINGUAL Q5M PRN #100 tab PRN Reason: Chest Pain Continue Psyllium Husk [Metamucil] 0.4 gm PO HS Florence-3/Dha/Epa/Fish Oil [Fish Oil 1,000 mg Softgel] 1 cap PO HS Cyanocobalamin (Vitamin B-12) [Vitamin B-12] 1,000 mcg PO HS Ascorbic Acid [Vitamin C] 1,000 mg PO HS Aspirin EC [Ecotrin Low Dose] 81 mg PO HS Discontinued Simvastatin [Zocor] 20 mg PO HS Discharge Medication List Ascorbic Acid [Vitamin C] 1,000 mg PO HS 03/04/23 [History] Aspirin EC [Ecotrin Low Dose] 81 mg PO HS 03/04/23 [History] Cyanocobalamin (Vitamin B-12) [Vitamin B-12] 1,000 mcg PO HS 03/04/23 [History] Florence-3/Dha/Epa/Fish Oil [Fish Oil 1,000 mg Softgel] 1 cap PO HS 03/04/23 [History] Psyllium Husk [Metamucil] 0.4 gm PO HS 03/04/23 [History] Atorvastatin [Lipitor] 80 mg PO HS #30 tab 03/06/23 [Rx] Nitroglycerin Sl Tabs [Nitrostat] 0.4 mg SUBLINGUAL Q5M PRN #100 tab 03/06/23 [Rx] Prasugrel [Effient] 10 mg PO DAILY #30 tab 03/06/23 [Rx] Follow up Appointment(s)/Referral(s): Aries Uriarte DO [Primary Care Provider] - 3 Days Activity/Diet/Wound Care/Special Instructions: Confirm cardiology follow-up prior to discharge. No smoking
== END 2023-03-06 15:22 | disposition home or self-care (01) | DRG 247 ==
LOC: EC 20:04 → 3SCARD 22:46
PROVIDERS: ADMIT Family Medicine; ATTEND Family Medicine
PROC: 4A033BC Measurement of Arterial Pressure, Coronary, Percutaneous Approach (ICD-10-PCS; 2023-03-05)
PROC: 027034Z Dilation of Coronary Artery, One Artery with Drug-eluting Intraluminal Device, Percutaneous Approach (ICD-10-PCS; principal; 2023-03-05 13:05)
PROC: B2111ZZ Fluoroscopy of Multiple Coronary Arteries using Low Osmolar Contrast (ICD-10-PCS; 2023-03-05 13:05)
PROC: 4A033BC Measurement of Arterial Pressure, Coronary, Percutaneous Approach (ICD-10-PCS; 2023-03-05 13:05)
PROC: 6A750Z5 Ultrasound Therapy of Heart, Single (ICD-10-PCS; 2023-03-05 13:05)
DX: I21.4 Non-ST elevation (NSTEMI) myocardial infarction (principal); E66.9 Obesity, unspecified; R00.1 Bradycardia, unspecified; I44.0 Atrioventricular block, first degree; R73.03 Prediabetes; F17.210 Nicotine dependence, cigarettes, uncomplicated; I25.110 Atherosclerotic heart disease of native coronary artery with unstable angina pectoris; E78.5 Hyperlipidemia, unspecified; G47.33 Obstructive sleep apnea (adult) (pediatric); W19.XXXA Unspecified fall, initial encounter; Z68.30 Body mass index [BMI] 30.0-30.9, adult; Z88.0 Allergy status to penicillin; Z79.899 Other long term (current) drug therapy; Z79.82 Long term (current) use of aspirin; Z28.310 Unvaccinated for COVID-19
CPT/HCPCS: 36415; 71046; 80048; 80053; 83036; 83690; 83735; 83880; 84484; 85025; 85379; 85610; 85730; 92978; 93005; 93306; 93458; 93799; 94760; 96361; 96374; 99285

== ENCOUNTER 2023-03-10 07:21 | Inpatient (IN) | payer BC ==
[2023-03-10] MEDS ORDERED: NITROGLYCERIN-D5W PMX 50 MG in DEXTROSE/WATER 1 250ML.BAG IV ONE (07:42)
[2023-03-10] MEDS ORDERED: ASPIRIN 325 MG TAB PO STA (07:44)
--- NOTE | 2023-03-10 07:47 | ED ---
General Adult HPI - General Chief complaint: Chest Pain Stated complaint: Chest Pain Time Seen by Provider: 03/10/23 07:23 Source: patient, RN notes reviewed, old records reviewed Mode of arrival: ambulatory Limitations: no limitations - History of Present Illness Initial comments: 62-year-old male with recent acute MD presenting for evaluation of chest pain and tightness. Patient has had intermittent symptoms since the time of discharge which was 5 days ago. Patient had RCA stent placed 6 days ago. He is on dual antiplatelet therapy which she has been compliant with. He denies associated nausea or vomiting. No diaphoresis. Pain was not relieved with nitroglycerin which he took this morning. 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 - Related Data Home Medications Medication Instructions Recorded Confirmed Ascorbic Acid [Vitamin C] 1,000 mg PO HS 03/04/23 03/04/23 Aspirin EC [Ecotrin Low Dose] 81 mg PO HS 03/04/23 03/04/23 Cyanocobalamin (Vitamin B-12) 1,000 mcg PO HS 03/04/23 03/04/23 [Vitamin B-12] [place]-3/Dha/Epa/Fish Oil [Fish Oil 1 cap PO HS 03/04/23 03/04/23 1,000 mg Softgel] Psyllium Husk [Metamucil] 0.4 gm PO HS 03/04/23 03/04/23 Previous Rx's Medication Instructions Recorded Atorvastatin [Lipitor] 80 mg PO HS #30 tab 03/06/23 Nitroglycerin Sl Tabs [Nitrostat] 0.4 mg SUBLINGUAL Q5M PRN #100 tab 03/06/23 Prasugrel [Effient] 10 mg PO DAILY #30 tab 03/06/23 Allergies Allergy/AdvReac Type Severity Reaction Status Date / Time Penicillins AdvReac Nausea & Verified 03/10/23 07:27 Vomiting & Diarrhea Review of Systems ROS Statement: Those systems with pertinent positive or pertinent negative responses have been documented in the HPI. ROS Other: All systems not noted in ROS Statement are negative. Past Medical History Past Medical History: Chest Pain / Angina, Hyperlipidemia, Sleep Apnea/CPAP/BIPAP History of Any Multi-Drug Resistant Organisms: None Reported Past Surgical History: Orthopedic Surgery Past Psychological History: No Psychological Hx Reported Smoking Status: Former smoker Past Alcohol Use History: Rare Past Drug Use History: None Reported - Past Family History Father Family Medical History: CVA/TIA Mother Family Medical History: Dementia General Exam Limitations: no limitations General appearance: alert, in no apparent distress Head exam: Present: atraumatic, normocephalic Eye exam: Present: normal appearance, PERRL ENT exam: Present: normal exam Neck exam: Present: normal inspection. Absent: tenderness, meningismus Respiratory exam: Present: normal lung sounds bilaterally, respiratory distress Cardiovascular Exam: Present: normal rhythm, bradycardia GI/Abdominal exam: Present: soft. Absent: distended, tenderness Extremities exam: Present: normal inspection, normal capillary refill. Absent: pedal edema Neurological exam: Present: alert, oriented X3, CN II-XII intact. Absent: motor sensory deficit Psychiatric exam: Present: normal affect, normal mood Skin exam: Present: warm, dry, intact. Absent: cyanosis, diaphoretic Course Vital Signs 03/10/23 03/10/23 07:24 08:27 Temperature 97.7 F Pulse Rate 50 L 50 L Respiratory 18 18 Rate Blood Pressure 102/60 97/68 O2 Sat by Pulse 98 97 Oximetry EKG Findings - EKG Comments: EKG Findings:: EKG: Sinus bradycardia rate 46, Q waves inferiorly with T-wave inversion in lead [address] segment elevation OK interval 204, QRS duration 97, QTC 398 Medical Decision Making - Medical Decision Making Was pt. sent in by a medical professional or institution ([facility] [place], [employer], urgent care, hospital, or alf...) When possible be specific @ [facility] Did you speak to anyone other than the patient for history (EMS, parent, family, police, friend...)? What history was obtained from this source @ -Patient is Did you review nursing and triage notes (agree or disagree)? Why? @ -I reviewed and agree with nursing and triage notes Were old charts reviewed (outside hosp., previous admission, EMS record, old EKG, old radiological studies, urgent care reports/EKG's, alf records)? Report findings @ -Recent heart cath Differential Diagnosis (chest pain, altered mental status, abdominal pain women, abdominal pain men, vaginal bleeding, weakness, fever, dyspnea, syncope, headache, dizziness, GI bleed, back pain, seizure, CVA, palpatations, mental health, musculoskeletal)? @ Differential Chest Pain: Stable Angina, Unstable Angina, STEMI, NSTEMI Aortic Dissection, Pneumothorax, Musculoskeletal, Esophageal Spasm GERD, Cholecystitis, Pancreatitis, Zoster, this is not meant to be an all-inclusive list. EKG interpreted by me (3pts min.). @ -As above X-rays interpreted by me (1pt min.). @ Negative for acute cardiopulmonary findings CT interpreted by me (1pt min.). @ -None done U/S interpreted by me (1pt. min.). @ -None done What testing was considered but not performed or refused? (CT, X-rays, U/S, labs)? Why? @ -None What meds were considered but not given or refused? Why? @ -None Did you discuss the management of the patient with other professionals (professionals i.e. , PA, [employer], lab, RT, psych nurse, medical social worker, beam dyer, teacher, youth probation officer, machine adjuster leader case trim)? Give summary @ -Dr. Castillo, Dr. Baxter Was smoking cessation discussed for >3mins.? @ -No Was critical care preformed (if so, how long)? @ -No Were there social determinants of health that impacted care today? How? (Homelessness, low income, unemployed, alcoholism, drug addiction, transp ortation, low edu. Level, literacy, decrease access to med. care, fci, rehab)? @ -No Was there de-escalation of care discussed even if they declined (Discuss DNR or withdrawal of care, Hospice)? DNR status @ -No What co-morbidities impacted this encounter? (DM, HTN, Smoking, COPD, CAD, Cancer, CVA, ARF, Chemo, Hep., AIDS, mental health diagnosis, sleep apnea, morbid obesity)? @ CAD Was patient admitted / discharged? Hospital course, mention meds given and route, prescriptions, significant lab abnormalities, going to OR and other pertinent info. @ 62-year-old male presents for reevaluation of chest pain and discomfort. Patient's had recent heart catheterization with RCA stent placed. His been compliant with his medications. I discussed case initially with Dr. Castillo, nitroglycerin is initiated. The troponin is elevated but significant rebound trending from prior. This level will be trended. He will be continued on dual antiplatelet medication. Case also discussed with Dr. sheet who will admit. Undiagnosed new problem with uncertain prognosis? @ -No Drug Therapy requiring intensive monitoring for toxicity (Heparin, Nitro, Insulin, Cardizem)? @ -No Were any procedures done? @ -No Diagnosis/symptom? @ -Chest Pain Acute, or Chronic, or Acute on Chronic? @ Acute Uncomplicated (without systemic symptoms) or Complicated (systemic symptoms)? @ -Complicated Side effects of treatment? @ -No Exacerbation, Progression, or Severe Exacerbation? @ -No Poses a threat to life or bodily function? How? (Chest pain, USA, MD, pneumonia, PE, COPD, DKA, ARF, appy, cholecystitis, CVA, Diverticulitis, Homicidal, Suicidal, threat to staff... and all critical care pts) @ -[yes - Lab Data Result diagrams: 03/10/23 07:43 03/10/23 07:43 Lab Results 03/10/23 03/10/23 03/10/23 Range/Units 07:43 07:43 07:43 WBC 8.4 (3.8-10.6) k/uL RBC 4.42 (4.30-5.90) m/uL Hgb 13.1 (13.0-17.5) gm/dL Hct 39.4 (39.0-53.0) % MCV 89.1 (80.0-100.0) fL MCH 29.6 (25.0-35.0) pg MCHC 33.2 (31.0-37.0) g/dL RDW 12.8 (11.5-15.5) % Plt Count 174 (150-450) k/uL MPV 8.4 Neutrophils % 67 % Lymphocytes % 20 % Monocytes % 5 % Eosinophils % 6 % Basophils % 1 % Neutrophils # 5.6 (1.3-7.7) k/uL Lymphocytes # 1.7 (1.0-4.8) k/uL Monocytes # 0.4 (0-1.0) k/uL Eosinophils # 0.5 (0-0.7) k/uL Basophils # 0.0 (0-0.2) k/uL PT 10.5 (9.0-12.0) sec INR 1.0 (<1.2) APTT 23.4 (22.0-30.0) sec Sodium 140 (137-145) mmol/L Potassium 4.1 (3.5-5.1) mmol/L Chloride 107 (98-107) mmol/L Carbon Dioxide 25 (22-30) mmol/L Anion Gap 8 mmol/L BUN 28 H (9-20) mg/dL Creatinine 0.72 (0.66-1.25) mg/dL Est GFR (CKD-EPI)AfAm >90 (>60 ml/min/1.73 sqM) Est GFR (CKD-EPI)NonAf >90 (>60 ml/min/1.73 sqM) Glucose 107 H (74-99) mg/dL Calcium 8.6 (8.4-10.2) mg/dL Magnesium 2.1 (1.6-2.3) mg/dL Total Bilirubin 0.4 (0.2-1.3) mg/dL AST 28 (17-59) U/L ALT 27 (4-49) U/L Alkaline Phosphatase 52 (38-126) U/L Troponin I (0.000-0.034) ng/mL Total Protein 6.2 L (6.3-8.2) g/dL Albumin 3.8 (3.5-5.0) g/dL 03/10/23 Range/Units 07:43 WBC (3.8-10.6) k/uL RBC (4.30-5.90) m/uL Hgb (13.0-17.5) gm/dL Hct (39.0-53.0) % MCV (80.0-100.0) fL MCH (25.0-35.0) pg MCHC (31.0-37.0) g/dL RDW (11.5-15.5) % Plt Count (150-450) k/uL MPV Neutrophils % % Lymphocytes % % Monocytes % % Eosinophils % % Basophils % % Neutrophils # (1.3-7.7) k/uL Lymphocytes # (1.0-4.8) k/uL Monocytes # (0-1.0) k/uL Eosinophils # (0-0.7) k/uL Basophils # (0-0.2) k/uL PT (9.0-12.0) sec INR (<1.2) APTT (22.0-30.0) sec Sodium (137-145) mmol/L Potassium (3.5-5.1) mmol/L Chloride (98-107) mmol/L Carbon Dioxide (22-30) mmol/L Anion Gap mmol/L BUN (9-20) mg/dL Creatinine (0.66-1.25) mg/dL Est GFR (CKD-EPI)AfAm (>60 ml/min/1.73 sqM) Est GFR (CKD-EPI)NonAf (>60 ml/min/1.73 sqM) Glucose (74-99) mg/dL Calcium (8.4-10.2) mg/dL Magnesium (1.6-2.3) mg/dL Total Bilirubin (0.2-1.3) mg/dL AST (17-59) U/L ALT (4-49) U/L Alkaline Phosphatase (38-126) U/L Troponin I 1.810 H* (0.000-0.034) ng/mL Total Protein (6.3-8.2) g/dL Albumin (3.5-5.0) g/dL Disposition Clinical Impression: Chest pain, NSTEMI (non-ST elevated myocardial infarction) Disposition: ADMITTED IP TO THIS HOSP Condition: Stable Is patient prescribed a controlled substance at d/c from ED?: No Referrals: Aries Uriarte DO [Primary Care Provider] - 1-2 days Time of Disposition: 08:54
[2023-03-10 07:55] LABS: Basophils % (A) 1 %; Eosinophils # (A) 0.5 k/uL (0-0.7); Eosinophils % (A) 6 %; HCT 39.4 % (39.0-53.0); HGB 13.1 gm/dL (13.0-17.5); Lymphocytes # (A) 1.7 k/uL (1.0-4.8); Lymphocytes % (A) 20 %; MCH 29.6 pg (25.0-35.0); MCHC 33.2 g/dL (31.0-37.0); MCV 89.1 fL (80.0-100.0); Mean Platelet Volume 8.4; Monocytes # (A) 0.4 k/uL (0-1.0); Monocytes % (A) 5 %; Neutrophils # (A) 5.6 k/uL (1.3-7.7); Neutrophils % (A) 67 %; Platelet Count 174 k/uL (150-450); RBC 4.42 m/uL (4.30-5.90); RDW 12.8 % (11.5-15.5); WBC 8.4 k/uL (3.8-10.6)
--- NOTE | 2023-03-10 07:55 | XR ---
EXAMINATION TYPE: XR chest 2V DATE OF EXAM: 03/10/2023 COMPARISON: 03/04/2023 HISTORY: Chest pain TECHNIQUE: Frontal and lateral views of the chest are obtained. FINDINGS: There is no focal air space opacity, pleural effusion, or pneumothorax seen. The cardiac silhouette size is within normal limits. The osseous structures are intact. IMPRESSION: No acute cardiopulmonary process.
[2023-03-10 08:06] LABS: ALT 27 U/L (4-49); AST 28 U/L (17-59); African American GFR (CKD) >90 (>60 ml/min/1.73 sqM); Albumin 3.8 g/dL (3.5-5.0); Alkaline Phosphatase 52 U/L (38-126); Anion Gap 8 mmol/L; Blood Urea Nitrogen 28 mg/dL (9-20); Calcium 8.6 mg/dL (8.4-10.2); Carbon Dioxide 25 mmol/L (22-30); Chloride 107 mmol/L (98-107); Glucose 107 mg/dL (74-99); Magnesium 2.1 mg/dL (1.6-2.3); Non-African American GFR(CKD) >90 (>60 ml/min/1.73 sqM); Potassium 4.1 mmol/L (3.5-5.1); Sodium 140 mmol/L (137-145); Total Bilirubin 0.4 mg/dL (0.2-1.3); Total Protein 6.2 g/dL (6.3-8.2)
[2023-03-10 08:09] LABS: Partial Thromboplastin Time 23.4 sec (22.0-30.0); Prothrombin Time 10.5 sec (9.0-12.0)
[2023-03-10] MEDS ORDERED: NALOXONE 0.4 MG/ML 1 ML VIAL IV PRN (08:09)
[2023-03-10] MEDS ORDERED: ACETAMINOPHEN TAB 325 MG TAB PO PRN (08:09)
[2023-03-10] MEDS ORDERED: ONDANSETRON 4 MG/2 ML VIAL IVP PRN (08:09)
[2023-03-10] MEDS: PRASUGREL 10 MG TAB PO SCH (08:49)
[2023-03-10] MEDS: SODIUM CHLORIDE 0.9% 1,000 ML IV SCH ×2 (08:49→23:08)
--- NOTE | 2023-03-10 10:36 | P.HPIM ---
History of Present Illness This is a pleasant 62 years old male who was recently discharged from the hospital on 03/06 PCI to the RCA with elevated troponin. He has chronic history of sleep apnea and hyperlipidemia. He was discharged on aspirin and effient and other cardiac medications including statin Presents today because of chest pain, similar to the chest pain he had it last week. This central started this morning radiating across his chest about 60/10 came down now to 2/10 with medication. No dyspnea or coughing. He was taking his aspirin and effient He quit smoking since last admission. He does not want nicotine patch. No alcohol or illicit drugs. He denies any change in urine or bowel habits. No fever. He has slight headache but is usual for him. No weakness or numbness or confusion Blood pressure 102/60. Heart rate 50. He has unremarkable CBC, INR, BMP and liver enzymes. Troponin is 1.8. Which is improving compared to 11.9 on 03/05 EKG showed sinus bradycardia at [address]-T changes. He has Q wave in lead 2 and 3. Chest x-ray: No acute process. he received extra doses of aspirin 325 mg and admitted with cardiology consult Review of Systems Review of systems CONSTITUTIONAL: No fever, no malaise, no fatigue. HEENT: No recent visual problems or hearing problems. Denied any sore throat. CARDIOVASCULAR: No orthopnea, PND, no palpitations, no syncope. PULMONARY: No shortness of breath, no cough, no hemoptysis. GASTROINTESTINAL: No diarrhea, no nausea, no vomiting, no abdominal pain. Normoactive bowel sounds. NEUROLOGICAL: No headaches, no weakness, no numbness. HEMATOLOGICAL: Denies any bleeding or petechiae. GENITOURINARY: Denies any burning micturition, frequency, or urgency. MUSCULOSKELETAL/RHEUMATOLOGICAL: Denies any joint pain, swelling, or any muscle pain. ENDOCRINE: Denies any polyuria or polydipsia. Past Medical History Past Medical History: Chest Pain / Angina, Hyperlipidemia, Sleep Apnea/CPAP/BIPAP History of Any Multi-Drug Resistant Organisms: None Reported Past Surgical History: Orthopedic Surgery Past Psychological History: No Psychological Hx Reported Smoking Status: Former smoker Past Alcohol Use History: Rare Past Drug Use History: None Reported - Past Family History Father Family Medical History: CVA/TIA Mother Family Medical History: Dementia Medications and Allergies Home Medications Medication Instructions Recorded Confirmed Type Ascorbic Acid [Vitamin C] 1,000 mg PO HS 03/04/23 03/04/23 History Aspirin EC [Ecotrin Low Dose] 81 mg PO HS 03/04/23 03/04/23 History Cyanocobalamin (Vitamin B-12) 1,000 mcg PO HS 03/04/23 03/04/23 History [Vitamin B-12] [place]-3/Dha/Epa/Fish Oil [Fish Oil 1 cap PO HS 03/04/23 03/04/23 History 1,000 mg Softgel] Psyllium Husk [Metamucil] 0.4 gm PO HS 03/04/23 03/04/23 History Atorvastatin [Lipitor] 80 mg PO HS #30 tab 03/06/23 Rx Nitroglycerin Sl Tabs [Nitrostat] 0.4 mg SUBLINGUAL Q5M PRN #100 tab 03/06/23 Rx Prasugrel [Effient] 10 mg PO DAILY #30 tab 03/06/23 Rx Allergies Allergy/AdvReac Type Severity Reaction Status Date / Time Penicillins AdvReac Nausea & Verified 03/10/23 07:27 Vomiting & Diarrhea Physical Exam Vitals: Vital Signs Temp Pulse Resp BP Pulse Ox 03/10/23 07:24 97.7 F 50 L 18 102/60 98 Intake and Output 03/09/23 03/10/23 03/10/23 22:59 06:59 14:59 Other: Weight 97.522 kg GENERAL: The patient is alert and oriented x3, not in any acute distress. Well developed, well nourished. HEENT: Pupils are round and equally reacting to light. EOMI. No scleral icterus. No conjunctival pallor. Normocephalic, atraumatic. No pharyngeal erythema. No thyromegaly. CARDIOVASCULAR: S1 and S2 present. No murmurs, rubs, or gallops. PULMONARY: Chest is clear to auscultation, no wheezing or crackles. ABDOMEN: Soft, nontender, nondistended, normoactive bowel sounds. No palpable organomegaly. MUSCULOSKELETAL: No joint swelling or deformity. EXTREMITIES: No cyanosis, clubbing, or pedal edema. NEUROLOGICAL: Gross neurological examination did not reveal any focal deficits. SKIN: No rashes. no petechiae. Results CBC & Chem 7: 03/10/23 07:43 03/10/23 07:43 Labs: Abnormal Lab Results - Last 24 Hours (Table) 03/10/23 03/10/23 Range/Units 07:43 07:43 BUN 28 H (9-20) mg/dL Glucose 107 H (74-99) mg/dL Troponin I 1.810 H* (0.000-0.034) ng/mL Total Protein 6.2 L (6.3-8.2) g/dL Assessment and Plan Assessment: Chest pain most likely related to cardiac angina Recent STEMI status post PCI to the RCA Hyperlipidemia Obesity with BMI of 30 Obstructive sleep apnea on CPAP at home Recent nicotine dependence, quit last week Plan: Continue with aspirin, effient Patient was started on nitroglycerin drip, monitor blood pressure Continue gentle hydration 75 mL/h Cardiology consult Labs and medication were reviewed.. Continue same treatment. Continue with symptomatic treatment. Resume home medication. Monitor labs and vitals. DVT and GI prophylaxis. Further recommendations as per clinical course of the patient DVT prophylaxis: Subcutaneous heparin GI Prophylaxis: Pepcid PT/OT: Pending Prognosis is guarded
[2023-03-10] MEDS ORDERED: HEPARIN SODIUM 1,000 UN/ML (10ML VL) IV PRN (14:14)
[2023-03-10] MEDS ORDERED: HEPARIN SODIUM 1,000 UN/ML (10ML VL) IV ONE (14:14)
[2023-03-10] MEDS ORDERED: HEPARIN SOD,PORK IN 0.45% NACL 25,000 UNIT in 0.45% NACL 1 250ML.BAG IV SCH (14:15)
--- NOTE | 2023-03-10 14:37 | P.CRDCN ---
History of Present Illness Consult date: 03/10/23 Consult reason: chest pain Chief complaint: chest pain History of present illness: History of present illness: Patient is a pleasant 62-year-old male with significant past medical history of tobacco abuse, borderline diabetes and recent NSTEMI with CAD status post PCI of the RCA who presents with chest pain. He denies any significant family history of heart disease. Earlier this week he developed chest pain and pressure, was diaphoretic and felt faint. He came to the emergency department was diagnosed with NSTEMI. He underwent heart catheterization 03/05/23 that revealed CAD including 99% mid RCA, 75% mid LAD, 60's 70% mid to distal LAD, 30% circumflex to stenosis and underwent PCI of proximal mid RCA. iFR was abnormal in the LAD, for which he was planned to undergo staged PCI in approximately 1-2 weeks. However he reports that since discharge home on 03/06 he has been waking up with chest tightness in the morning. This morning the chest tightness was more severe so he came to the emergency department. He denies any diaphoresis, dizziness, flushed feeling, or near syncope with this episode. Denies any shortness of breath. The chest pain did improve with a nitro drip denies any chest pain presently. Troponins continued to trend down. EKG shows sinus bradycardia of 46 bpm. Chest x-ray with no acute findings. He has been compliant with aspirin and Effient. REVIEW OF SYSTEMS: No fever or chills. No cough or expectoration. No diaphoresis. Patient denies headache, dizziness, blurred vision, double vision. Patient denies any stomach discomfort. No nausea, vomiting. No hematochezia. No hematemesis. Denies any black stools or blood in his stools. Denies dysuria or hematuria. No muscle weakness or numbness. No chest pain or pressure. PHYSICAL EXAMINATION: This is a 62-year-old male in no apparent distress at the time of my examination. HEENT: Head is atraumatic, normocephalic. Pupils are equal, round. Sclerae anicteric. Conjunctivae are clear. Mucous membranes of the mouth are moist. Neck is supple. There is no jugular venous distention. No carotid bruit is heard. CHEST EXAMINATION: Lungs are clear to auscultation. No chest wall tenderness is noted on palpation or with deep breathing. HEART EXAMINATION: Heart regular rate and rhythm. S1, S2 heard. No murmurs, gallops or rub. ABDOMEN: Soft, nontender. Bowel sounds are heard. EXTREMITIES: 2+ peripheral pulses with no evidence of peripheral edema and no calf tenderness noted. NEUROLOGIC EXAMINATION: Patient is awake, alert and oriented x3. IMPRESSION AND PLAN: NSTEMI CAD status post PCI RCA; 75% stenosis of LAD with abnormal iFR Elevated troponins, trending down status post NSTEMI Chest pressure Tobacco abuse Borderline diabetes PLAN: Troponins are elevated ,however, they are continuing to trend down status post NSTEMI 5 days ago. Start heparin drip. Continue nitro drip for now. Encouraged continue smoking cessation. Given continued symptoms we will plan for PCI of the LAD tomorrow. Nothing by mouth after midnight. I am dictating on behalf of Dr. Wes Castillo's history/physical and assessm ent/plan. Past Medical History Past Medical History: Chest Pain / Angina, Hyperlipidemia, Sleep Apnea/CPAP/BIPAP History of Any Multi-Drug Resistant Organisms: None Reported Past Surgical History: Orthopedic Surgery Additional Past Surgical History / Comment(s): right rotator cuff Past Psychological History: No Psychological Hx Reported Smoking Status: Former smoker Past Alcohol Use History: Rare Past Drug Use History: None Reported - Past Family History Father Family Medical History: CVA/TIA Mother Family Medical History: Dementia Medications and Allergies Home Medications Medication Instructions Recorded Confirmed Type Ascorbic Acid [Vitamin C] 1,000 mg PO HS 03/04/23 03/10/23 History Aspirin EC [Ecotrin Low Dose] 81 mg PO HS 03/04/23 03/10/23 History Cyanocobalamin (Vitamin B-12) 1,000 mcg PO HS 03/04/23 03/10/23 History [Vitamin B-12] [place]-3/Dha/Epa/Fish Oil [Fish Oil 1 cap PO HS 03/04/23 03/10/23 History 1,000 mg Softgel] Psyllium Husk [Metamucil] 0.4 gm PO HS 03/04/23 03/10/23 History Atorvastatin [Lipitor] 80 mg PO HS #30 tab 03/06/23 03/10/23 Rx Nitroglycerin Sl Tabs [Nitrostat] 0.4 mg SUBLINGUAL Q5M PRN #100 tab 03/06/23 03/10/23 Rx Prasugrel [Effient] 10 mg PO DAILY #30 tab 03/06/23 03/10/23 Rx Allergies Allergy/AdvReac Type Severity Reaction Status Date / Time Penicillins AdvReac Nausea & Verified 03/10/23 10:54 Vomiting & Diarrhea Physical Exam Vitals: Vital Signs Temp Pulse Pulse Resp BP BP Pulse Ox 03/10/23 11:50 97.7 F 49 L 16 103/63 97 03/10/23 10:00 97.6 F 48 L 16 103/51 98 03/10/23 09:45 52 L 18 110/57 96 03/10/23 08:27 50 L 18 97/68 97 03/10/23 07:24 97.7 F 50 L 18 102/60 98 Intake and Output 03/09/23 03/10/23 03/10/23 22:59 06:59 14:59 Other: # Voids 1 # Bowel Movements 1 Weight 97.522 kg Results 03/10/23 07:43 03/10/23 07:43 Cardiac Enzymes 03/10/23 03/10/23 03/10/23 Range/Units 07:43 07:43 09:39 AST 28 (17-59) U/L Troponin I 1.810 H* 1.620 H* (0.000-0.034) ng/mL 03/10/23 Range/Units 11:44 AST (17-59) U/L Troponin I 1.350 H* (0.000-0.034) ng/mL Coagulation 03/10/23 Range/Units 07:43 PT 10.5 (9.0-12.0) sec APTT 23.4 (22.0-30.0) sec CBC 03/10/23 Range/Units 07:43 WBC 8.4 (3.8-10.6) k/uL RBC 4.42 (4.30-5.90) m/uL Hgb 13.1 (13.0-17.5) gm/dL Hct 39.4 (39.0-53.0) % Plt Count 174 (150-450) k/uL Comprehensive Metabolic Panel 03/10/23 Range/Units 07:43 Sodium 140 (137-145) mmol/L Potassium 4.1 (3.5-5.1) mmol/L Chloride 107 (98-107) mmol/L Carbon Dioxide 25 (22-30) mmol/L BUN 28 H (9-20) mg/dL Creatinine 0.72 (0.66-1.25) mg/dL Glucose 107 H (74-99) mg/dL Calcium 8.6 (8.4-10.2) mg/dL AST 28 (17-59) U/L ALT 27 (4-49) U/L Alkaline Phosphatase 52 (38-126) U/L Total Protein 6.2 L (6.3-8.2) g/dL Albumin 3.8 (3.5-5.0) g/dL Current Medications Generic Name Dose Route Start Last Admin Trade Name Freq PRN Reason Stop Dose Admin Acetaminophen 650 mg 03/10/23 08:09 Acetaminophen Tab 325 Mg Tab PO Q6HR PRN Mild Pain or Fever > 100.5 Aspirin 81 mg 03/10/23 21:00 Aspirin 81 Mg PO HS RUDY Atorvastatin Calcium 80 mg 03/10/23 21:00 Atorvastatin 80 Mg Tab PO HS RUDY Famotidine 20 mg 03/10/23 21:00 Famotidine 20 Mg/2 Ml Vial IV Q12HR [facility] Heparin Sodium (Porcine) 0 unit 03/10/23 14:14 Heparin Sodium 1,000 Un/Ml (10ml Vl) IV PER PROTOCOL PRN Low PTT Protocol Nitroglycerin/Dextrose 50 mg/ 250 mls @ 1.5 mls/hr 03/10/23 07:42 03/10/23 08:06 IV Solution IV 03/11/23 07:41 5 mcg/min .Q24H ONE 1.5 mls/hr Administration Protocol 5 MCG/MIN Sodium Chloride 1,000 mls @ 75 mls/hr 03/10/23 08:15 03/10/23 08:49 Saline 0.9% IV 75 mls/hr .[id number] [facility] Administration Heparin Sodium/Sodium Chloride 250 mls @ 10 mls/hr 03/10/23 14:15 25,000 unit/ Sodium Chloride IV .Q24H [facility] Protocol 10.254 UNITS/KG/HR Naloxone HCl 0.2 mg 03/10/23 08:09 Naloxone 0.4 Mg/Ml 1 Ml Vial IV Q2M PRN Opioid Reversal Ondansetron HCl 4 mg 03/10/23 08:09 Ondansetron 4 Mg/2 Ml Vial IVP Q8HR PRN Nausea And Vomiting Prasugrel 10 mg 03/10/23 09:00 03/10/23 08:49 Prasugrel 10 Mg Tab PO 10 mg DAILY RUDY Administration Intake and Output 03/09/23 03/10/23 03/10/23 22:59 06:59 14:59 Other: # Voids 1 # Bowel Movements 1 Weight 97.522 kg Patient Weight 03/11/23 06:59 Weight 97.522 kg 03/10/23 07:43 03/10/23 07:43
[2023-03-10 14:46] LABS: Basophils % (A) 1 %; Eosinophils # (A) 0.4 k/uL (0-0.7); Eosinophils % (A) 5 %; HCT 37.6 % (39.0-53.0); HGB 12.6 gm/dL (13.0-17.5); Lymphocytes % (A) 25 %; MCHC 33.6 g/dL (31.0-37.0); MCV 89.3 fL (80.0-100.0); Mean Platelet Volume 9.2; Monocytes # (A) 0.4 k/uL (0-1.0); Monocytes % (A) 5 %; Neutrophils % (A) 63 %; Platelet Count 175 k/uL (150-450); RBC 4.21 m/uL (4.30-5.90); RDW 13.2 % (11.5-15.5)
[2023-03-10 14:52] LABS: Partial Thromboplastin Time 22.9 sec (22.0-30.0); Prothrombin Time 10.5 sec (9.0-12.0)
[2023-03-10] MEDS: ASPIRIN 81 MG PO SCH (20:41)
[2023-03-10] MEDS: ATORVASTATIN 80 MG TAB PO SCH (20:41)
[2023-03-10] MEDS: FAMOTIDINE 20 MG/2 ML VIAL IV SCH (20:41)
[2023-03-10] MEDS ORDERED: HEPARIN SODIUM,PORCINE/PF 5,000 UNIT/0.5 ML SYRINGE SQ SCH (21:00)
[2023-03-11 04:12] LABS: Basophils % (A) 0 %; Eosinophils # (A) 0.4 k/uL (0-0.7); Eosinophils % (A) 5 %; HCT 37.3 % (39.0-53.0); HGB 12.5 gm/dL (13.0-17.5); Lymphocytes # (A) 1.9 k/uL (1.0-4.8); Lymphocytes % (A) 23 %; MCHC 33.4 g/dL (31.0-37.0); Monocytes # (A) 0.4 k/uL (0-1.0); Monocytes % (A) 5 %; Neutrophils # (A) 5.5 k/uL (1.3-7.7); Neutrophils % (A) 66 %; Platelet Count 159 k/uL (150-450); RBC 4.15 m/uL (4.30-5.90); RDW 12.8 % (11.5-15.5); WBC 8.3 k/uL (3.8-10.6)
[2023-03-11 04:54] LABS: INR 1.1 (<1.2); Partial Thromboplastin Time 43.7 sec (22.0-30.0)
[2023-03-11] MEDS: FAMOTIDINE 20 MG/2 ML VIAL IV SCH ×2 (06:39→21:02)
[2023-03-11] MEDS: PRASUGREL 10 MG TAB PO SCH (06:39)
[2023-03-11] MEDS ORDERED: HEPARIN SODIUM,PORCINE 10,000 UNIT in SODIUM CHLORIDE 0.9% 1,000 ML IRRIGATION PRN (07:00)
[2023-03-11] MEDS ORDERED: HEPARIN SODIUM,PORCINE 2,500 UNIT in SODIUM CHLORIDE 0.9% 250 ML IRRIGATION PRN (07:00)
[2023-03-11] MEDS ORDERED: IV FLUID CONTINUATION 1,000 ML IV ONE (10:55)
--- NOTE | 2023-03-11 10:56 | P.PN ---
Subjective This is a pleasant 62 years old male who was recently discharged from the hospital on 03/06 PCI to the RCA with elevated troponin. He has chronic history of sleep apnea and hyperlipidemia. He was discharged on aspirin and effient and other cardiac medications including statin Presents today because of chest pain, similar to the chest pain he had it last week. This central started this morning radiating across his chest about 60/10 came down now to 2/10 with medication. No dyspnea or coughing. He was taking his aspirin and effient He quit smoking since last admission. He does not want nicotine patch. No alcohol or illicit drugs. He denies any change in urine or bowel habits. No fever. He has slight headache but is usual for him. No weakness or numbness or confusion Blood pressure 102/60. Heart rate 50. He has unremarkable CBC, INR, BMP and liver enzymes. Troponin is 1.8. Which is improving compared to 11.9 on 03/05 EKG showed sinus bradycardia at [address]-T changes. He has Q wave in lead 2 and 3. Chest x-ray: No acute process. he received extra doses of aspirin 325 mg and admitted with cardiology consult 03/11/2023 Patient with no chest pain. No dyspnea. No new complaint Vitals stable. Hemoglobin 12. Patient is going for cardiac catheter today He was on heparin drip as well effient, aspirin in the morning Objective - Vital Signs Vital signs: Vital Signs Temp 98.1 F 03/11/23 07:50 Pulse 56 L 03/11/23 07:50 Resp 16 03/11/23 07:50 BP 121/70 03/11/23 07:50 Pulse Ox 96 03/11/23 07:50 FiO2 Intake & Output 03/10/23 03/11/23 03/11/23 18:59 06:59 18:59 Intake Total 180 61 Balance 180 61 Weight 97.522 kg Intake: Intake, IV Titration 61 Amount Heparin Sod,Pork in 0.45% 61 NaCl 25,000 unit In 0.45 % NaCl 1 250ml.bag @ 10. 254 UNITS/KG/HR 10 mls/hr IV .Q24H RUDY Rx#: [id number] Oral 180 Other: Voiding Method Toilet # Voids 1 # Bowel Movements 1 - Exam GENERAL: The patient is alert and oriented x3, not in any acute distress. Well developed, well nourished. HEENT: Pupils are round and equally reacting to light. EOMI. No scleral icterus. No conjunctival pallor. Normocephalic, atraumatic. No pharyngeal erythema. No thyromegaly. CARDIOVASCULAR: S1 and S2 present. No murmurs, rubs, or gallops. PULMONARY: Chest is clear to auscultation, no wheezing or crackles. ABDOMEN: Soft, nontender, nondistended, normoactive bowel sounds. No palpable organomegaly. MUSCULOSKELETAL: No joint swelling or deformity. EXTREMITIES: No cyanosis, clubbing, or pedal edema. NEUROLOGICAL: Gross neurological examination did not reveal any focal deficits. SKIN: No rashes. no petechiae. - Labs CBC & Chem 7: 03/11/23 03:28 03/10/23 07:43 Labs: Abnormal Lab Results - Last 24 Hours (Table) 03/10/23 03/10/23 03/10/23 Range/Units 09:39 11:44 14:26 RBC 4.21 L (4.30-5.90) m/uL Hgb 12.6 L (13.0-17.5) gm/dL Hct 37.6 L (39.0-53.0) % APTT (22.0-30.0) sec Troponin I 1.620 H* 1.350 H* (0.000-0.034) ng/mL 03/10/23 03/11/23 03/11/23 Range/Units 20:15 03:28 03:28 RBC 4.15 L (4.30-5.90) m/uL Hgb 12.5 L (13.0-17.5) gm/dL Hct 37.3 L (39.0-53.0) % APTT 32.8 H 43.7 H (22.0-30.0) sec Troponin I (0.000-0.034) ng/mL Assessment and Plan Assessment: Chest pain most likely related to cardiac angina Recent STEMI status post PCI to the RCA Hyperlipidemia Obesity with BMI of 30 Obstructive sleep apnea on CPAP at home Recent nicotine dependence, quit last week Plan: Patient is going for cardiac cath today Continue with aspirin, effient Patient was started on nitroglycerin drip, monitor blood pressure Continue with heparin drip Continue gentle hydration 75 mL/h Cardiology consult Labs and medication were reviewed.. Continue same treatment. Continue with symptomatic treatment. Resume home medication. Monitor labs and vitals. DVT and GI prophylaxis. Further recommendations as per clinical course of the patient DVT prophylaxis: Subcutaneous heparin GI Prophylaxis: Pepcid PT/OT: Pending Prognosis is guarded
[2023-03-11] MEDS ORDERED: fentaNYL (PF) 50 MCG/ML 2 ML AMP ONE (10:58)
[2023-03-11] MEDS ORDERED: VERAPAMIL 2.5 MG/ML 2 ML AMP ONE (10:58)
[2023-03-11] MEDS ORDERED: HEPARIN SODIUM 1,000 UN/ML (10ML VL) ONE (10:58)
[2023-03-11] MEDS ORDERED: MIDAZOLAM 2 MG/2 ML VIAL IV ONE (11:16)
[2023-03-11] MEDS ORDERED: LIDOCAINE 1% INJ 10MG/ML (5 ML VIAL-PF) SQ ONE (11:16)
[2023-03-11] MEDS ORDERED: fentaNYL (PF) 50 MCG/ML 2 ML AMP IV ONE (11:16)
[2023-03-11] MEDS ORDERED: VERAPAMIL SYRINGE (5 MG/10 ML) INTRAARTER ONE (11:18)
[2023-03-11] MEDS: HEPARIN SODIUM 1,000 UN/ML (10ML VL) IV ONE ×3 (11:23→12:06)
[2023-03-11] MEDS: NITROGLYCERIN 1000MCG/10ML SYRINGE INTRACORON ONE ×3 (12:00→12:18)
[2023-03-11] MEDS ORDERED: IOPAMIDOL-370 125ML BTL INJ ONE (12:20)
[2023-03-11] MEDS: SODIUM CHLORIDE 0.9% 1,000 ML IV SCH (12:59)
[2023-03-11] MEDS ORDERED: NITROGLYCERIN SL TABS 0.4 MG TAB SUBLINGUAL PRN (17:45)
[2023-03-11] MEDS ORDERED: RX INFO: IV CONTRAST WAS GIVEN 1 EACH MISC MISCELLANE PRN (17:45)
[2023-03-11] MEDS ORDERED: ATROPINE SULFATE 0.1 MG/ML 10ML SYRINGE IV PRN (17:45)
[2023-03-11] MEDS ORDERED: ZOLPIDEM 5 MG TAB PO PRN (17:45)
[2023-03-11] MEDS ORDERED: MAG HYDROX/AL HYDROX/SIMETH 30 ML CUP PO PRN (17:45)
--- NOTE | 2023-03-11 17:45 | P.PRCINT ---
Percutaneous Coronary Int. - Percutaneous Coronary Intervention Percutaneous Coronary Intervention: PROCEDURES PERFORMED: Left heart catheterization, bilateral coronary angiography, PCI mid LAD with 3.5 x 15mm Xience JONATHAN, iFR LAD INDICATION: NSTEMI, staged PCI CONSENT:I have discussed the risks, benefits and alternative therapies for the above-mentioned procedure and for both sedation/analgesia as well as necessary blood product administration, if indicated, as they pertain to this patient. The patient has indicated understanding and acceptance of the risks and procedures discussed. PROCEDURE: After the risks, benefits and alternatives of the above mentioned procedure explained in detail with the patient, informed consent was obtained. Patient was taken to the catheterization lab and prepped and draped in usual fashion. 1% lidocaine was used to anesthetize the right radial artery. A 6- British sheath was placed in the right radial artery using modified Seldinger technique. Left coronary angiography was performed with a 5-British JL 3.5 catheter and right coronary angiography was performed with a 5-British JR5 catheter in various views. A 5-British FR5 catheter was inserted into the left ventricle and pressure measurements were obtained. The decision was made to perform PCI of the LAD. Heparin was given. A 6-British CLS 3.0 guide was used to engage the left main. A 0.014 BMW wire was advanced to the distal diagonal branch. There was an aneurysmal portion of the mid LAD, just past the lesion and then at the distal end of this aneurysmal portion, the LAD bifurcates and takes a sharp bend. Difficulty wiring with a 0.014 BMW and whisper and eventually required a 90 degree Supercross microcatheter and was able to wire the main LAD with a 0.014 whisper wire.. Predilation was performed with a 3.0 x 12 balloon. Next a 3.5 x 15mm Xience JONATHAN was placed. There was more distal disease of the mid to distal LAD and decision was made to perform iFR. Her 0.014 pressure wire inside of the Supercross was inserted and then normalized in the left main. Using the Supercross, the 0.014 wire was placed in the mid to distal LAD. iFR was performed and was abnormal at 0.75 however with pullback, there was diffuse pressure gradient across the entire LAD up the level of the bifurcation of the LAD/aneurysmal portion, with iFR at that level 0.92. Given the majority of the abnormal iFR was the entire mid to distal LAD which would require stenting likely back to the bifurcation and anuerysmal portion, felt best treated medically at this time. The wire was pulled. Final angiograms were performed. Preintervention there was 80-90% mid LAD stenosis and ALEJANDRA 3 flow and post intervention there was < 10% stenosis and ALEJANDRA 3 flow. The right radial sheath was removed and a TR band was placed with hemostasis achieved. The patient tolerated the procedure well. Patient was transported [facility] to the post catheterization holding area in stable condition. Conscious Sedation: Patient was monitored under the direct supervision of myself for conscious sedation using Versed and fentanyl for a total duration of 66 minutes HEMODYNAMICS: Ao: 120/57 LV: 118/5, LVEDP 19 SELECTIVE CORONARY ARTERIOGRAPHY: LEFT MAIN: The left main is a large caliber vessel which bifurcates into the LAD and circumflex. There is no significant stenosis. LEFT ANTERIOR DESCENDING CORONARY ARTERY: LAD is a large caliber vessel which wraps around to the apex. There is a mid LAD 80-90% stenosis followed by mild ectasia before diagonal 1 bifurcation. There is mid to distal LAD 60-70% stenosis. LEFT CIRCUMFLEX CORONARY ARTERY: Left circumflex is a moderate caliber vessel with mild 20-30% stenosis. There is a very small caliber superior branch of the OM1 which appears to have 90% stenosis. RIGHT CORONARY ARTERY: The right coronary artery is a large caliber vessel which gives off a PDA and PLV branch and is the dominant vessel. There is a proximal RCA stent which is patent. Otherwise there are mild luminal irregularities with a mid PDA 60-70% stenosis. FINAL IMPRESSION: 1. CAD as described above including 60-70% mid PDA, 80-90% mid LAD, 60-70% mid to distal LAD, superior branch OM1 90% stenosis, patent proximal RCA stent 2. S/p PCI mid LAD with 3.5 x 15mm Xience JONATHAN 3. Mildly elevated left sided filling pressures 4. iFR abnormal LAD PLAN: 1. Aggressive risk factor modification per most recent ACC/AHA guidelines. 2. Continue dual antiplatelets with aspirin and Effient for 12 months 3. Given diffuse mid to distal LAD disease with abnormal iFR with pullback all the way to the bifurcation and likely need to stent into aneurysmal bifurcation portion, medical therapy at this time of mid to distal LAD. Likewise medical therapy of small caliber PDA, superior branch of OM1 however if significant more angina, may consider further intervention.
[2023-03-11] MEDS: ASPIRIN 81 MG PO SCH (21:01)
[2023-03-11] MEDS: ATORVASTATIN 80 MG TAB PO SCH (21:01)
[2023-03-12] MEDS: SODIUM CHLORIDE 0.9% 1,000 ML IV SCH (05:53)
[2023-03-12] MEDS: FAMOTIDINE 20 MG/2 ML VIAL IV SCH (08:56)
[2023-03-12] MEDS: PRASUGREL 10 MG TAB PO SCH (08:56)
[2023-03-12 11:11] VITALS: RESP 16; TEMP 98.4
[2023-03-12 11:42] LABS: African American GFR (CKD) >90 (>60 ml/min/1.73 sqM); Anion Gap 7 mmol/L; Blood Urea Nitrogen 15 mg/dL (9-20); Calcium 9.1 mg/dL (8.4-10.2); Carbon Dioxide 27 mmol/L (22-30); Chloride 105 mmol/L (98-107); Glucose 95 mg/dL (74-99); Non-African American GFR(CKD) >90 (>60 ml/min/1.73 sqM); Sodium 139 mmol/L (137-145)
[2023-03-12 12:31] VITALS: BP 104/66; PULSE 52
--- NOTE | 2023-03-12 13:15 | P.PN ---
Subjective Progress Note Date: 03/12/23 HISTORY OF PRESENT ILLNESS: Patient is a pleasant 62-year-old male with significant past medical history of tobacco abuse, borderline diabetes and recent NSTEMI with CAD status post PCI of the RCA who presents with chest pain. He denies any significant family history of heart disease. Earlier this week he developed chest pain and pressure, was diaphoretic and felt faint. He came to the emergency department was diagnosed with NSTEMI. He underwent heart catheterization 03/05/23 that revealed CAD including 99% mid RCA, 75% mid LAD, 60's 70% mid to distal LAD, 30% circumflex to stenosis and underwent PCI of proximal mid RCA. iFR was abnormal in the LAD, for which he was planned to undergo staged PCI in approximately 1-2 weeks. However he reports that since discharge home on 03/06 he has been waking up with chest tightness in the morning. This morning the chest tightness was more severe so he came to the emergency department. He denies any diaphoresis, dizziness, flushed feeling, or near syncope with this episode. Denies any shortness of breath. The chest pain did improve with a nitro drip denies any chest pain presently. Troponins continued to trend down. EKG shows sinus bradycardia of 46 bpm. Chest x-ray with no acute findings. He has been compliant with aspirin and Effient. 03/12/2023 Patient examined this morning at the bedside. Patient denies chest pain or pressure. Patient denies shortness of breath. He is status post cardiac catheterization with PCI to the mid LAD. Vital signs are stable. PHYSICAL EXAM: VITAL SIGNS: Reviewed. GENERAL: Well-developed in no acute distress. NECK: Supple. No JVD or thyromegaly LUNGS: Respirations even and unlabored. Lungs essentially clear to auscultation bilaterally. HEART: Regular rate and rhythm. S1 and S2 heard. EXTREMITIES: Normal range of motion. No clubbing or cyanosis. Peripheral pulses intact. No lower extremity edema ASSESSMENT: NSTEMI, status post cardiac catheterization with PCI to the mid LAD CAD status post PCI RCA; 75% stenosis of LAD with abnormal iFR Elevated troponins, trending down status post NSTEMI Chest pressure Tobacco abuse Borderline diabetes PLAN: Continue current cardiac medications Patient is stable for discharge home today Follow up in the office post discharge with Dr. Castillo Nurse practitioner note has been reviewed by physician. Signing provider agrees with the documented findings, assessment, and plan of care. Objective - Vital Signs Vital signs: Vital Signs Temp 98.4 F 03/12/23 08:31 Pulse 52 L 03/12/23 12:30 Resp 16 03/12/23 12:30 BP 104/66 03/12/23 12:30 Pulse Ox 97 03/12/23 12:30 FiO2 Intake & Output 03/11/23 03/12/23 03/12/23 18:59 06:59 18:59 Intake Total 560 1080 778 Balance 560 1080 778 Weight 94.5 kg Intake: IV 200 Oral 360 1080 778 Other: Voiding Method Toilet Toilet # Voids 3 - Labs CBC & Chem 7: 03/11/23 03:28 03/12/23 10:42
[2023-03-12 13:31] VITALS: BMI 29.0
--- NOTE | 2023-03-12 22:32 | P.DS ---
Providers Date of admission: 03/10/23 08:12 Attending physician: Aries Uriarte Consults: 03/10/23 08:09 Consult Physician Urgent Consulting Provider: Wes Castillo Consult Reason/Comments: CP Do you want consulting provider notified?: Already Contacted 03/11/23 17:45 Consult Physician Routine Consulting Provider: [facility] Consult Reason/Comments: Post Interventional Patient Do you want consulting provider notified?: Already Contacted Primary care physician: Aries Uriarte Hospital Course: vDiagnoses: Chest pain most likely related to cardiac angina Recent STEMI status post PCI to the RCA Hyperlipidemia Obesity with BMI of 30 Obstructive sleep apnea on CPAP at home Recent nicotine dependence, quit last week Hospital course: This is a pleasant 62 years old male who was recently discharged from the hospital on 03/06 PCI to the RCA with elevated troponin. He has chronic history of sleep apnea and hyperlipidemia. He was discharged on aspirin and effient and other cardiac medications including statin Presents today because of chest pain, similar to the chest pain he had it last week. He was evaluated by dev ops engineer and underwent cardiac cath with He is status post cardiac catheterization with PCI to the mid LAD. He has other multiple stenotic coronary artery lesions that he would be followed up as an outpatient. Patient currently is asymptomatic. Denies chest pain or dyspnea. No other new complaints. Vital signs stable. Patient was cleared for discharge by dev ops engineer and patient wants to go home. Problems and management plan were discussed with the patient and he verbalized understanding and acceptance Patient was found stable and can be discharged home in guarded prognosis however he needs follow-up as an outpatient. Patient was instructed to follow up with PCP Dr. Uriarte within one week and patient agrees Patient is going to follow up with his dev ops engineer Dr. Castillo and he told me he already has an appointment set up for him on 03/14 that he intends to attempt. Staff confirmed his appointment. Patient, he has PRESCRIPTIONS at home, refills were sent anyway Physical exam Gen: patient is a AAOx3, no distress CVS: S1-S2, RRR, no murmur Lungs: B/L CTA, no wheezing Abdomen: soft, no distention, no tenderness, positive bowel sounds Extremity: no leg edema or induration Time spent more than 35 minutes Patient Condition at Discharge: Stable Plan - Discharge Summary Discharge Rx Participant: Yes New Discharge Prescriptions: Continue Psyllium Husk [Metamucil] 0.4 gm PO HS Aspirin EC [Ecotrin Low Dose] 81 mg PO HS #30 tab Hart-3/Dha/Epa/Fish Oil [Fish Oil 1,000 mg Softgel] 1 cap PO HS Cyanocobalamin (Vitamin B-12) [Vitamin B-12] 1,000 mcg PO HS Ascorbic Acid [Vitamin C] 1,000 mg PO HS Atorvastatin [Lipitor] 80 mg PO HS #30 tab Nitroglycerin Sl Tabs [Nitrostat] 0.4 mg SUBLINGUAL Q5M PRN #100 tab PRN Reason: Chest Pain Prasugrel [Effient] 10 mg PO DAILY #30 tab MDD 1 Discharge Medication List Ascorbic Acid [Vitamin C] 1,000 mg PO HS 03/04/23 [History] Cyanocobalamin (Vitamin B-12) [Vitamin B-12] 1,000 mcg PO HS 03/04/23 [History] Hart-3/Dha/Epa/Fish Oil [Fish Oil 1,000 mg Softgel] 1 cap PO HS 03/04/23 [History] Psyllium Husk [Metamucil] 0.4 gm PO HS 03/04/23 [History] Atorvastatin [Lipitor] 80 mg PO HS #30 tab 03/06/23 [Rx] Nitroglycerin Sl Tabs [Nitrostat] 0.4 mg SUBLINGUAL Q5M PRN #100 tab 03/06/23 [Rx] Aspirin EC [Ecotrin Low Dose] 81 mg PO HS #30 tab 03/12/23 [Rx] Prasugrel [Effient] 10 mg PO DAILY #30 tab MDD 1 03/12/23 [Rx] Follow up Appointment(s)/Referral(s): Wes Castillo DO [STAFF PHYSICIAN] - 03/14/23 1:15 pm Aries Uriarte DO [Primary Care Provider] - 1-2 days Patient Instructions/Handouts: *Surgery [facility] - After Heart Catheterization - Clinical Education Manager Instructions Activity/Diet/Wound Care/Special Instructions: Heart healthy diet activity is restricted till you see your doctor Discharge Disposition: HOME SELF-CARE
--- NOTE | 2023-03-14 12:45 | CDI ---
Documentation Clarification Form Date: 03/14/23 From: Carola Boyd Admit Date: 03/10/2023 8:12:00 AM Patient Name: Zach Pisano Visit Number: [id number] Discharge Date: 03/12/2023 1:57:00 PM ATTENTION: The Clinical Documentation Specialists (CDI) and [facility] Coding Staff appreciate your assistance in clarifying documentation. Please respond to the clarification below the line at the bottom and electronically sign. The CDI & [facility] Coding staff will review the response and follow-up if needed. Please note: Queries are made part of the Legal Health Record. If you have any questions, please contact the author of this message via ITS. Dr. Rojas E Sheet, Conflicting documentation has been found in the medical record. As attending physician, please provide clarification. Per cardiology - NSTEMI,status postcardiac catheterizationwithPCIto the mid LAD. RecentNSTEMIwithCADstatus post PCI of the RCA. Per your discharge summary - Chest painmostlikelyrelated to cardiacangina History/Risk Factors: History of tobacco abuse,borderline diabetesand recentNSTEMIwithCADstatus post PCI of the RCA Clinical Indicators: Developed chest pain and pressure. Troponin 1.810, 1.620, 1.350 (03/10) Treatment: Left heart catheterization, bilateralcoronary angiography,PCImid LAD with 3.5 x 15mm Xience JONATHAN, iFR LAD Please clarify which diagnosis is most appropriate: [ ] New NSTEMI [ ] CAD w angina [ ] Other (please specify) [ ] Unable to determine New NSTEMI MTDD
== END 2023-03-12 13:57 | disposition home or self-care (01) | DRG 247 ==
LOC: EC 07:21 → 3SCARD 08:11 → OBSVTOIN 08:12 → 3SCARD 09:10
PROVIDERS: ADMIT Family Medicine; ATTEND Family Medicine
PROC: B2111ZZ Fluoroscopy of Multiple Coronary Arteries using Low Osmolar Contrast (ICD-10-PCS; principal; 2023-03-11 11:00)
PROC: 027034Z Dilation of Coronary Artery, One Artery with Drug-eluting Intraluminal Device, Percutaneous Approach (ICD-10-PCS; principal; 2023-03-11 11:00)
PROC: 4A033BC Measurement of Arterial Pressure, Coronary, Percutaneous Approach (ICD-10-PCS; principal; 2023-03-11 11:00)
PROC: 4A023N7 Measurement of Cardiac Sampling and Pressure, Left Heart, Percutaneous Approach (ICD-10-PCS; principal; 2023-03-11 11:00)
DX: I22.2 Subsequent non-ST elevation (NSTEMI) myocardial infarction (principal); I21.4 Non-ST elevation (NSTEMI) myocardial infarction; I25.119 Atherosclerotic heart disease of native coronary artery with unspecified angina pectoris; Z28.310 Unvaccinated for COVID-19; R73.03 Prediabetes; E78.5 Hyperlipidemia, unspecified; G47.33 Obstructive sleep apnea (adult) (pediatric); E66.9 Obesity, unspecified; Z68.30 Body mass index [BMI] 30.0-30.9, adult; Z79.82 Long term (current) use of aspirin; Z79.02 Long term (current) use of antithrombotics/antiplatelets; Z79.899 Other long term (current) drug therapy; Z87.891 Personal history of nicotine dependence; Z95.5 Presence of coronary angioplasty implant and graft; Z71.3 Dietary counseling and surveillance; Z88.0 Allergy status to penicillin
CPT/HCPCS: 36415; 71046; 80048; 80053; 83735; 84484; 85025; 85610; 85730; 93005; 93458; 93799; 96365; 96366; 99285

== ENCOUNTER → 2023-07-20 | Outpatient (CLI) | payer BC ==
[2023-07-20 16:16] LABS: ALT 26 U/L (10-49); AST 23 U/L (14-35); Chol/HDL Ratio 2.07 Ratio; LDL Cholesterol,Calculated 40.3 mg/dL (0.0-131.0); VLDL Calculation 9.92 mg/dL (5.00-40.00)
== END | disposition home or self-care (01) ==
LOC: LABWHC1 10:07
PROVIDERS: ATTEND Internal Medicine
DX: E78.2 Mixed hyperlipidemia (principal)
CPT/HCPCS: 36415; 80061; 84450; 84460

== ENCOUNTER → 2023-11-07 | Outpatient (CLI) | payer BC ==
[2023-11-07 15:34] LABS: ALT 29 U/L (10-49); AST 25 U/L (14-35); LDL Cholesterol,Calculated 39.4 mg/dL (0.0-131.0); VLDL Calculation 7.56 mg/dL (5.00-40.00)
== END | disposition home or self-care (01) ==
LOC: LABWHC1 09:05
PROVIDERS: ATTEND Internal Medicine
DX: E78.2 Mixed hyperlipidemia (principal)
CPT/HCPCS: 36415; 80061; 84450; 84460

== ENCOUNTER 2024-01-15 17:51 | Observation (INO) | payer BC ==
--- NOTE | 2024-01-15 18:12 | ED ---
General Adult HPI - General Chief complaint: Chest Pain Stated complaint: Chest Pain Time Seen by Provider: 01/15/24 18:03 Source: patient, RN notes reviewed Mode of arrival: ambulatory Limitations: no limitations - History of Present Illness Initial comments: Patient is a pleasant 63-year-old male present to the emergency department with concerns with chest discomfort. Onset of symptoms was 230 while at work. Patient was not exerting himself. Discomfort felt like indigestion or tightness. Discomfort has improved and is currently 4 or 5/10. No radiation. No dyspnea. Patient did have some nausea and sweating earlier. Symptoms are similar to when patient needed stents a year ago however not quite as severe. - Related Data Home Medications Medication Instructions Recorded Confirmed Ascorbic Acid [Vitamin C] 1,000 mg PO HS 03/04/23 03/10/23 Cyanocobalamin (Vitamin B-12) 1,000 mcg PO HS 03/04/23 03/10/23 [Vitamin B-12] [place]-3/Dha/Epa/Fish Oil [Fish Oil 1 cap PO HS 03/04/23 03/10/23 1,000 mg Softgel] Psyllium Husk [Metamucil] 0.4 gm PO HS 03/04/23 03/10/23 Previous Rx's Medication Instructions Recorded Atorvastatin [Lipitor] 80 mg PO HS #30 tab 03/06/23 Nitroglycerin Sl Tabs [Nitrostat] 0.4 mg SUBLINGUAL Q5M PRN #100 tab 03/06/23 Aspirin EC [Ecotrin Low Dose] 81 mg PO HS #30 tab 03/12/23 Prasugrel [Effient] 10 mg PO DAILY #30 tab MDD 1 03/12/23 Allergies Allergy/AdvReac Type Severity Reaction Status Date / Time Penicillins AdvReac Nausea & Verified 01/15/24 17:56 Vomiting & Diarrhea Review of Systems ROS Statement: Those systems with pertinent positive or pertinent negative responses have been documented in the HPI. ROS Other: All systems not noted in ROS Statement are negative. Constitutional: Denies: fever Eyes: Denies: eye pain ENT: Denies: ear pain Respiratory: Denies: cough, dyspnea Cardiovascular: Reports: as per HPI, chest pain Gastrointestinal: Reports: nausea. Denies: abdominal pain Past Medical History Past Medical History: Chest Pain / Angina, Hyperlipidemia, Sleep Apnea/CPAP/BIPAP History of Any Multi-Drug Resistant Organisms: None Reported Past Surgical History: Orthopedic Surgery Additional Past Surgical History / Comment(s): right rotator cuff Past Psychological History: No Psychological Hx Reported Smoking Status: Former smoker Past Alcohol Use History: Rare Past Drug Use History: None Reported - Past Family History Father Family Medical History: CVA/TIA Mother Family Medical History: Dementia General Exam Limitations: no limitations General appearance: alert, in no apparent distress Head exam: Present: normocephalic Eye exam: Present: normal appearance Neck exam: Present: normal inspection Respiratory exam: Present: normal lung sounds bilaterally. Absent: chest wall tenderness, accessory muscle use Cardiovascular Exam: Present: regular rate, normal rhythm Expanded Peripheral pulses: 2+: Radial (R), Radial (L), Posterior Tibialis (R), Posterior Tibialis (L) GI/Abdominal exam: Present: soft. Absent: tenderness Extremities exam: Present: normal inspection. Absent: pedal edema, calf tenderness Neurological exam: Present: alert Psychiatric exam: Present: normal affect, normal mood Skin exam: Present: normal color Course Vital Signs 01/15/24 01/15/24 01/15/24 17:53 18:10 18:33 Temperature 98.4 F Pulse Rate 57 L 57 L 54 L Pulse Rate [ Validation Engineer ] Respiratory 16 16 20 Rate Blood Pressure 149/79 173/85 155/80 O2 Sat by Pulse 98 95 97 Oximetry 01/15/24 01/15/24 18:44 19:50 Temperature Pulse Rate 53 L Pulse Rate [ 68 Validation Engineer ] Respiratory 16 Rate Blood Pressure 154/87 O2 Sat by Pulse 95 Oximetry EKG Findings - EKG Results: EKG: interpreted by ERMD (Inferior Q waves), sinus rhythm, normal axis, normal ST/T EKG shows: bradycardia Medical Decision Making - Medical Decision Making Was pt. sent in by a medical professional or institution (, PA, GEOTHERMAL PLANT MANAGER, urgent care, hospital, or long term...) When possible be specific @ -No Did you speak to anyone other than the patient for history (EMS, parent, family, police, friend...)? What history was obtained from this source @ - is present and helps provide history including previous cardiac history Did you review nursing and triage notes (agree or disagree)? Why? @ -I reviewed and agree with nursing and triage notes Were old charts reviewed (outside hosp., previous admission, EMS record, old EKG, old radiological studies, urgent care reports/EKG's, long term records)? Report findings @ -Previous chest x-ray reviewed Differential Diagnosis (chest pain, altered mental status, abdominal pain women, abdominal pain men, vaginal bleeding, weakness, fever, dyspnea, syncope, headache, dizziness, GI bleed, back pain, seizure, CVA, palpatations, mental health, musculoskeletal)? @ -MDM differential chest EKG interpreted by me (3pts min.). @ -As above X-rays interpreted by me (1pt min.). @ -Chest x-ray shows no acute process CT interpreted by me (1pt min.). @ -None done U/S interpreted by me (1pt. min.). @ -None done What testing was considered but not performed or refused? (CT, X-rays, U/S, labs)? Why? @ -None What meds were considered but not given or refused? Why? @ -None Did you discuss the management of the patient with other professionals (professionals i.e. , PA, GEOTHERMAL PLANT MANAGER, lab, RT, psych nurse, high school social studies teacher, detective homicide squad, teacher, sailing officer, case mgr)? Give summary @ -Case was discussed with Dr. Uriarte who will admit his patient Was smoking cessation discussed for >3mins.? @ -No Was critical care preformed (if so, how long)? @ -No Were there social determinants of health that impacted care today? How? (Homelessness, low income, unemployed, alcoholism, drug addiction, transportation, low edu. Level, literacy, decrease access to med. care, [facility], rehab)? @ -No Was there de-escalation of care discussed even if they declined (Discuss DNR or withdrawal of care, Hospice)? DNR status @ -No What co-morbidities impacted this encounter? (DM, HTN, Smoking, COPD, CAD, Cancer, CVA, ARF, Chemo, Hep., AIDS, mental health diagnosis, sleep apnea, morbid obesity)? @ -None Was patient admitted / discharged? Hospital course, mention meds given and route, prescriptions, significant lab abnormalities, going to OR and other pertinent info. @ -Patient reevaluated and resting comfortably in bed. Patient updated on results and plan. Patient will be admitted with cardiology consult. Admission orders written. Undiagnosed new problem with uncertain prognosis? @ -No Drug Therapy requiring intensive monitoring for toxicity (Heparin, Nitro, Insulin, Cardizem)? @ -No Were any procedures done? @ -No Diagnosis/symptom? @ -Chest pain Acute, or Chronic, or Acute on Chronic? @ -Acute Uncomplicated (without systemic symptoms) or Complicated (systemic symptoms)? @ -Default Side effects of treatment? @ -No Exacerbation, Progression, or Severe Exacerbation? @ -No Poses a threat to life or bodily function? How? (Chest pain, [place], [place], pneumonia, PE, COPD, DKA, ARF, appy, cholecystitis, CVA, Diverticulitis, Homicidal, Suicidal, threat to staff... and all critical care pts) @ -No - Lab Data Result diagrams: 01/15/24 18:10 01/15/24 18:10 Lab Results 01/15/24 01/15/24 01/15/24 Range/Units 18:10 18:10 18:10 WBC 7.1 (3.8-10.6) k/uL RBC 4.80 (4.30-5.90) m/uL Hgb 14.4 (13.0-17.5) gm/dL Hct 42.6 (39.0-53.0) % MCV 88.7 (80.0-100.0) fL MCH 29.9 (25.0-35.0) pg MCHC 33.7 (31.0-37.0) g/dL RDW 13.4 (11.5-15.5) % Plt Count 187 (150-450) k/uL MPV 8.3 Neutrophils % 59 % Lymphocytes % 29 % Monocytes % 5 % Eosinophils % 4 % Basophils % 1 % Neutrophils # 4.2 (1.3-7.7) k/uL Lymphocytes # 2.1 (1.0-4.8) k/uL Monocytes # 0.3 (0-1.0) k/uL Eosinophils # 0.3 (0-0.7) k/uL Basophils # 0.1 (0-0.2) k/uL PT 11.0 (10.0-12.5) sec INR 1.0 (<1.2) APTT 24.5 (22.0-30.0) sec D-Dimer 0.32 (<0.60) mg/L FEU Sodium 138 (137-145) mmol/L Potassium 4.4 (3.5-5.1) mmol/L Chloride 107 (98-107) mmol/L Carbon Dioxide 24 (22-30) mmol/L Anion Gap 7 mmol/L BUN 21 H (9-20) mg/dL Creatinine 0.67 (0.66-1.25) mg/dL Est GFR (CKD-EPI)AfAm >90 (>60 ml/min/1.73 sqM) Est GFR (CKD-EPI)NonAf >90 (>60 ml/min/1.73 sqM) Glucose 151 H (74-99) mg/dL Calcium 9.3 (8.4-10.2) mg/dL Magnesium 2.0 (1.6-2.3) mg/dL Total Bilirubin 0.6 (0.2-1.3) mg/dL AST 32 (17-59) U/L ALT 25 (4-49) U/L Alkaline Phosphatase 40 (38-126) U/L Troponin I (0.000-0.034) ng/mL Total Protein 7.0 (6.3-8.2) g/dL Albumin 4.5 (3.5-5.0) g/dL Amylase 50 (30-110) U/L Lipase 90 (23-300) U/L /04/04 Range/Units 18:10 WBC (3.8-10.6) k/uL RBC (4.30-5.90) m/uL Hgb (13.0-17.5) gm/dL Hct (39.0-53.0) % MCV (80.0-100.0) fL MCH (25.0-35.0) pg MCHC (31.0-37.0) g/dL RDW (11.5-15.5) % Plt Count (150-450) k/uL MPV Neutrophils % % Lymphocytes % % Monocytes % % Eosinophils % % Basophils % % Neutrophils # (1.3-7.7) k/uL Lymphocytes # (1.0-4.8) k/uL Monocytes # (0-1.0) k/uL Eosinophils # (0-0.7) k/uL Basophils # (0-0.2) k/uL PT (10.0-12.5) sec INR (<1.2) APTT (22.0-30.0) sec D-Dimer (<0.60) mg/L FEU Sodium (137-145) mmol/L Potassium (3.5-5.1) mmol/L Chloride (98-107) mmol/L Carbon Dioxide (22-30) mmol/L Anion Gap mmol/L BUN (9-20) mg/dL Creatinine (0.66-1.25) mg/dL Est GFR (CKD-EPI)AfAm (>60 ml/min/1.73 sqM) Est GFR (CKD-EPI)NonAf (>60 ml/min/1.73 sqM) Glucose (74-99) mg/dL Calcium (8.4-10.2) mg/dL Magnesium (1.6-2.3) mg/dL Total Bilirubin (0.2-1.3) mg/dL AST (17-59) U/L ALT (4-49) U/L Alkaline Phosphatase (38-126) U/L Troponin I <0.012 (0.000-0.034) ng/mL Total Protein (6.3-8.2) g/dL Albumin (3.5-5.0) g/dL Amylase (30-110) U/L Lipase (23-300) U/L Disposition Clinical Impression: Chest pain Disposition: ADMITTED IP TO THIS [facility] Is patient prescribed a controlled substance at d/c from ED?: No Referrals: Wes Castillo DO [STAFF PHYSICIAN] - 1-2 days Time of Disposition: 20:23
[2024-01-15] MEDS: ASPIRIN 81 MG PO STA (18:28)
[2024-01-15] MEDS: NITROGLYCERIN OINT 1 INCH/GM PACKET TOPICAL STA (18:28)
[2024-01-15 18:36] LABS: Basophils # (A) 0.1 k/uL (0-0.2); Basophils % (A) 1 %; Eosinophils # (A) 0.3 k/uL (0-0.7); Eosinophils % (A) 4 %; HCT 42.6 % (39.0-53.0); HGB 14.4 gm/dL (13.0-17.5); Lymphocytes # (A) 2.1 k/uL (1.0-4.8); Lymphocytes % (A) 29 %; MCH 29.9 pg (25.0-35.0); MCHC 33.7 g/dL (31.0-37.0); MCV 88.7 fL (80.0-100.0); Mean Platelet Volume 8.3; Monocytes # (A) 0.3 k/uL (0-1.0); Monocytes % (A) 5 %; Neutrophils # (A) 4.2 k/uL (1.3-7.7); Neutrophils % (A) 59 %; Platelet Count 187 k/uL (150-450); RDW 13.4 % (11.5-15.5); WBC 7.1 k/uL (3.8-10.6)
[2024-01-15 18:52] LABS: ALT 25 U/L (4-49); AST 32 U/L (17-59); African American GFR (CKD) >90 (>60 ml/min/1.73 sqM); Albumin 4.5 g/dL (3.5-5.0); Alkaline Phosphatase 40 U/L (38-126); Amylase 50 U/L (30-110); Anion Gap 7 mmol/L; Blood Urea Nitrogen 21 mg/dL (9-20); Calcium 9.3 mg/dL (8.4-10.2); Carbon Dioxide 24 mmol/L (22-30); Chloride 107 mmol/L (98-107); Glucose 151 mg/dL (74-99); Lipase 90 U/L (23-300); Non-African American GFR(CKD) >90 (>60 ml/min/1.73 sqM); Potassium 4.4 mmol/L (3.5-5.1); Sodium 138 mmol/L (137-145); Total Bilirubin 0.6 mg/dL (0.2-1.3)
--- NOTE | 2024-01-15 19:10 | XR ---
EXAMINATION TYPE: XR chest 2V DATE OF EXAM: 01/15/2024 6:49 PM CLINICAL INDICATION:Male, 63 years old with history of Chest Pain; [facility] COMPARISON: Chest radiographs from 03/10/2023 TECHNIQUE: XR chest 2V Frontal and lateral views of the chest. FINDINGS: Lungs/Pleura: There is no evidence of pleural effusion, focal consolidation, or pneumothorax. Pulmonary vascularity: Unremarkable. Heart/mediastinum: Cardiomediastinal silhouette is unremarkable. Musculoskeletal: No acute osseous pathology. IMPRESSION: No acute cardiopulmonary disease/process.
[2024-01-15 19:15] LABS: Partial Thromboplastin Time 24.5 sec (22.0-30.0)
[2024-01-15] MEDS ORDERED: NITROGLYCERIN SL TABS 0.4 MG TAB SUBLINGUAL PRN (20:23)
[2024-01-16] MEDS: NITROGLYCERIN OINT 1 INCH/GM PACKET TOPICAL SCH (00:08)
[2024-01-16 07:30] VITALS: BP 136/74; PULSE 56; RESP 19; TEMP 97.5
[2024-01-16 08:38] LABS: Chol/HDL Ratio 1.97 Ratio; LDL Cholesterol,Calculated 33.7 mg/dL (0.0-131.0); VLDL Calculation 12.64 mg/dL (5.00-40.00)
[2024-01-16] MEDS ORDERED: ASPIRIN 325 MG TAB PO SCH (09:00)
--- NOTE | 2024-01-16 09:54 | P.CRDCN ---
History of Present Illness Consult date: 01/16/24 Consult reason: chest pain History of present illness: History of present illness: This is a 63-year-old male patient of Dr. Castillo with past medical history of non-ST elevated myocardial infarction with coronary artery disease status post PCI of the RCA and mid LAD, borderline diabetes, history of tobacco use and dependence, borderline diabetes. We have been asked to evaluate the patient for chest pain. Patient gives history that he had worse pain when he underwent stenting of his heart. He has been seen in the office recently and is due for stress test. 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 Chest pain started yesterday while he was at work resting. He still has the pain now and has had some intermittent chest pain ever since his stenting was done in February 2023. EKG sinus bradycardia Chest x-ray: No acute process CBC INR, D-dimer, electrolytes, liver function test all within normal limits. Troponin negative x 3. Glucose 151. BUN 21 creatinine 0.67. Magnesium 2.0. Triglycerides 63, cholesterol 94, LDL 33, HDL 47. Home cardiac medications: Aspirin 81 mg daily, Nitrostat as needed, Effient 10 mg at bedtime, Crestor 20 mg at bedtime Cardiac catheterization performed 03/10/[address] Castillo revealed CAD with 60 to 70% mid PDA, 80 to 90% mid LAD, 60 to 70% mid to distal LAD, superior branch OM1 90% stenosis, patent proximal RCA stent. Patient underwent PCI of the mid LAD with JONATHAN. Mildly elevated left-sided filling pressures. iFR abnormal in the LAD. Cardiac catheterization performed 03/04/2023 status post PCI of the mid RCA with JONATHAN and balloon. Echocardiogram performed 03/05/2023 reveals EF of 50 to 55%. Review Of Systems: At the time of my exam: CONSTITUTIONAL: Denies fever or chills. HEENT: Denies blurred vision, vision changes, or eye pain. Denies hemoptysis CARDIOVASCULAR: Denies chest pain. Denies orthopnea. Denies PND. Denies palpitations RESPIRATORY: Denies shortness of breath. GASTROINTESTINAL: Denies abdominal pain. Denies nausea or vomiting. HEMATOLOGIC: Denies bleeding disorders. GENITOURINARY: Denies any blood in urine. SKIN: Denies pruitis. Denies rash. Physical examination: Gen: This is a 63-year-old male in no acute distress VS: reviewed HEENT: Head is atraumatic, normocephalic. Pupils equal, round. Sclerae is anicteric. NECK: Supple. No JVD. LUNGS: Clear to auscultation. No wheezes or rhonchi. No intercostal retractions. HEART: Regular rate and rhythm. No murmur. ABDOMEN: Soft No tenderness. EXTREMITIES: No pedal edema. No calf tenderness. NEUROLOGICAL: Patient is awake, alert and oriented x3. Assessment: Atypical chest pain, acute coronary syndrome ruled out with negative troponins Abnormal EKG History of non-ST elevated myocardial infarction and coronary artery disease with previous PCI Borderline diabetes History of tobacco use Plan: Resume patient's home cardiac medications Obtain Cardiolite stress test Obtain 2-D echocardiogram and Doppler study to assess cardiac structure and function If testing is unremarkable, patient is cleared for discharge and may follow-up with Dr. Castillo in 1 to 2 weeks. Thank you kindly for this consultation. Nurse practitioner note has been reviewed, I agree with documented findings and plan of care. Patient was seen and examined. Past Medical History Past Medical History: Chest Pain / Angina, Hyperlipidemia, Sleep Apnea/CPAP/BIP AP History of Any Multi-Drug Resistant Organisms: None Reported Past Surgical History: Orthopedic Surgery Additional Past Surgical History / Comment(s): right rotator cuff Past Psychological History: No Psychological Hx Reported Smoking Status: Former smoker Past Alcohol Use History: Rare Past Drug Use History: None Reported - Past Family History Father Family Medical History: CVA/TIA Mother Family Medical History: Dementia Medications and Allergies Home Medications Medication Instructions Recorded Confirmed Type Ascorbic Acid [Vitamin C] 1,000 mg PO HS 03/04/23 01/15/24 History Cyanocobalamin (Vitamin B-12) 1,000 mcg PO HS 03/04/23 01/15/24 History [Vitamin B-12] Psyllium Husk [Metamucil] 0.4 gm PO HS 03/04/23 01/15/24 History Nitroglycerin Sl Tabs [Nitrostat] 0.4 mg SUBLINGUAL Q5M PRN #100 tab 03/06/23 01/15/24 Rx Aspirin EC [Ecotrin Low Dose] 81 mg PO HS #30 tab 03/12/23 01/15/24 Rx Cholecalciferol [Vitamin D3 (25 25 mcg PO HS 01/15/24 01/15/24 History Mcg = 1000 Iu)] Prasugrel [Effient] 10 mg PO HS 01/15/24 01/15/24 History Rosuvastatin Calcium [Crestor] 20 mg PO HS 01/15/24 01/15/24 History Allergies Allergy/AdvReac Type Severity Reaction Status Date / Time Penicillins AdvReac Nausea & Verified 01/15/24 21:45 Vomiting & Diarrhea Physical Exam Vitals: Vital Signs Temp Pulse Pulse Resp BP BP Pulse Ox 01/16/24 07:00 97.5 F L 56 L 19 136/74 96 01/16/24 02:00 51 L 18 122/73 96 01/15/24 19:50 53 L 16 154/87 95 01/15/24 18:44 68 01/15/24 18:33 54 L 20 155/80 97 01/15/24 18:10 57 L 16 173/85 95 01/15/24 17:53 98.4 F 57 L 16 149/79 98 Intake and Output 01/15/24 01/16/24 01/16/24 22:59 06:59 14:59 Other: Voiding Method Toilet # Voids 1 1 Weight 97.522 kg Results 01/15/24 18:10 01/15/24 18:10 Cardiac Enzymes 01/15/24 01/15/24 01/15/24 Range/Units 18:10 18:10 21:18 AST 32 (17-59) U/L Troponin I <0.012 <0.012 (0.000-0.034) ng/mL 01/16/24 Range/Units 02:58 AST (17-59) U/L Troponin I <0.012 (0.000-0.034) ng/mL Coagulation 01/15/24 Range/Units 18:10 PT 11.0 (10.0-12.5) sec APTT 24.5 (22.0-30.0) sec CBC 01/15/24 Range/Units 18:10 WBC 7.1 (3.8-10.6) k/uL RBC 4.80 (4.30-5.90) m/uL Hgb 14.4 (13.0-17.5) gm/dL Hct 42.6 (39.0-53.0) % Plt Count 187 (150-450) k/uL Comprehensive Metabolic Panel 01/15/24 Range/Units 18:10 Sodium 138 (137-145) mmol/L Potassium 4.4 (3.5-5.1) mmol/L Chloride 107 (98-107) mmol/L Carbon Dioxide 24 (22-30) mmol/L BUN 21 H (9-20) mg/dL Creatinine 0.67 (0.66-1.25) mg/dL Glucose 151 H (74-99) mg/dL Calcium 9.3 (8.4-10.2) mg/dL AST 32 (17-59) U/L ALT 25 (4-49) U/L Alkaline Phosphatase 40 (38-126) U/L Total Protein 7.0 (6.3-8.2) g/dL Albumin 4.5 (3.5-5.0) g/dL Current Medications Generic Name Dose Route Start Last Admin Trade Name Freq PRN Reason Stop Dose Admin Aspirin 325 mg 01/16/24 09:00 Aspirin 325 Mg Tab PO DAILY RUDY Nitroglycerin 0.4 mg 01/15/24 20:23 Nitroglycerin Sl Tabs 0.4 Mg Tab SUBLINGUAL Q5M PRN Chest Pain Nitroglycerin 1 inch 01/16/24 00:00 01/16/24 06:17 Nitroglycerin Oint 1 Inch/Gm Packet TOPICAL Not Given Q6HR RUDY Intake and Output 01/15/24 01/16/24 01/16/24 22:59 06:59 14:59 Other: Voiding Method Toilet # Voids 1 1 Weight 97.522 kg 01/15/24 18:10 01/15/24 18:10
--- NOTE | 2024-01-16 11:38 | P.HPIM ---
History of Present Illness H&P Date: 01/16/24 Chief Complaint: Chest pain History and Physical and Discharge Summary: This is a pleasant 63-year-old gentleman with past medical history significant for CAD,NSTEMI and previous PCI 03/04, echo EF of 50-55% (03/04),borderline diabetes, obesity, obstructive sleep apnea, wears CPAP, former nicotine dependence and multiple other medical issues, presented to the ER with complaints of chest pain.Patient has been following outpatient with Dr. Castillo recently in regards to vague chest pain and reports he was initially scheduled for stress echo outpatient today. Yesterday while at work, nonexertional, nonstrenuous ,developed ongoing worsening tightening midsternal chest pain radiating to left chest. Reports felt similar, less severe, to 1 year ago when he required stents. Reports intermittent vague chest pain since his prior stenting in February 2023. proceeded to the ER secondary to persistent chest pain and reports he continues to have chest pain this morning. Troponins negative x 3. EKG reported abnormal EKG,sinus bradycardia. Chest x-ray reported non acute. Afebrile, normal WBC. Hematology, coagulation and chemistry panel is unremarkable. Lipid panel reported triglycerides 63, cholesterol 94, LDL 33, HDL 47.7. Review of Systems ROS Statement: Those systems with pertinent positive or pertinent negative responses have been documented in the HPI. ROS Other: All systems not noted in ROS Statement are negative. Past Medical History Past Medical History: Chest Pain / Angina, Hyperlipidemia, Sleep Apnea/CPAP/BIPAP History of Any Multi-Drug Resistant Organisms: None Reported Past Surgical History: Orthopedic Surgery Additional Past Surgical History / Comment(s): right rotator cuff Past Psychological History: No Psychological Hx Reported Smoking Status: Former smoker Past Alcohol Use History: Rare Past Drug Use History: None Reported - Past Family History Father Family Medical History: CVA/TIA Mother Family Medical History: Dementia Medications and Allergies Home Medications Medication Instructions Recorded Confirmed Type Ascorbic Acid [Vitamin C] 1,000 mg PO HS 03/04/23 01/15/24 History Cyanocobalamin (Vitamin B-12) 1,000 mcg PO HS 03/04/23 01/15/24 History [Vitamin B-12] Psyllium Husk [Metamucil] 0.4 gm PO HS 03/04/23 01/15/24 History Nitroglycerin Sl Tabs [Nitrostat] 0.4 mg SUBLINGUAL Q5M PRN #100 tab 03/06/23 01/15/24 Rx Aspirin EC [Ecotrin Low Dose] 81 mg PO HS #30 tab 03/12/23 01/15/24 Rx Cholecalciferol [Vitamin D3 (25 25 mcg PO HS 01/15/24 01/15/24 History Mcg = 1000 Iu)] Prasugrel [Effient] 10 mg PO HS 01/15/24 01/15/24 History Rosuvastatin Calcium [Crestor] 20 mg PO HS 01/15/24 01/15/24 History Allergies Allergy/AdvReac Type Severity Reaction Status Date / Time Penicillins AdvReac Nausea & Verified 01/15/24 21:45 Vomiting & Diarrhea Physical Exam Vitals: Vital Signs Temp Pulse Pulse Resp BP BP Pulse Ox 01/16/24 07:00 97.5 F L 56 L 19 136/74 96 01/16/24 02:00 51 L 18 122/73 96 01/15/24 19:50 53 L 16 154/87 95 01/15/24 18:44 68 01/15/24 18:33 54 L 20 155/80 97 01/15/24 18:10 57 L 16 173/85 95 01/15/24 17:53 98.4 F 57 L 16 149/79 98 Intake and Output 01/15/24 01/16/24 01/16/24 22:59 06:59 14:59 Other: Voiding Method Toilet Toilet # Voids 1 1 Weight 97.522 kg GENERAL: alert and oriented x3, no acute distress. Well developed, well nourished. HEENT: Pupils are round and equally reacting to light. EOMI. No scleral icterus. No conjunctival pallor. Normocephalic, atraumatic. No pharyngeal erythema. No thyromegaly. CARDIOVASCULAR: S1 and S2 present. No murmurs, rubs, or gallops. PULMONARY: Unlabored, equal air entry ,chest is clear to auscultation, no wheezing or crackles. ABDOMEN: Soft, nontender, nondistended, normoactive bowel sounds. No palpable organomegaly. EXTREMITIES: No cyanosis, clubbing, or pedal edema. NEUROLOGICAL: Gross neurological examination did not reveal any focal deficits. SKIN: No rashes, warm and dry Results CBC & Chem 7: 01/15/24 18:10 01/15/24 18:10 Labs: Abnormal Lab Results - Last 24 Hours (Table) 01/15/24 Range/Units 18:10 BUN 21 H (9-20) mg/dL Glucose 151 H (74-99) mg/dL Assessment and Plan Assessment: Chest pain, atypical, negative troponins ,ACS ruled out, stress test pending CAD, history of NSTEMI and previous PCI Obesity, BMI 30 Obstructive sleep apnea on CPAP at home Prior nicotine dependence Borderline diabetes mellitus Discharge Medication List Ascorbic Acid [Vitamin C] 1,000 mg PO HS 03/04/23 [History] Cyanocobalamin (Vitamin B-12) [Vitamin B-12] 1,000 mcg PO HS 03/04/23 [History] Psyllium Husk [Metamucil] 0.4 gm PO HS 03/04/23 [History] Nitroglycerin Sl Tabs [Nitrostat] 0.4 mg SUBLINGUAL Q5M PRN #100 tab 03/06/23 [Rx] Aspirin EC [Ecotrin Low Dose] 81 mg PO HS #30 tab 03/12/23 [Rx] Cholecalciferol [Vitamin D3 (25 Mcg = 1000 Iu)] 25 mcg PO HS 01/15/24 [History] Prasugrel [Effient] 10 mg PO HS 01/15/24 [History] Rosuvastatin Calcium [Crestor] 20 mg PO HS 01/15/24 [History] Plan: Continue on current medication regimen ,monitoring and symptomatic treatment. Evaluated by cardiology, 2D echocardiogram/Doppler ordered, scheduled for a Cardiolite stress test. Patient will be discharged home today in stable condition with guarded prognosis, pending stress test results, final DC recommendations and clearance per cardiology. The impression and plan of care has been dictated as directed. : I performed a history and examination of this patient, discussed the same with the dictator. I agree with the dictator's note ,documented as a scribe. Any additional findings or plans will be noted.
--- NOTE | 2024-01-16 11:45 | CA ---
Exercise Stress Test Report Name: Zach Pisano Exam Date: 01/16/2024 09:40 Exam Location: [facility] Ht (in): 71 Wt (lb): 215 BSA: 2.17 Ordering Phys: Kellen Cabrera Referring Phys: KELLEN CABRERA,, Technologist: Vikram Pratt Age: 63 Gender: M : 1960 Procedure CPT: Indications: Reflex order-Stress test ICD-10 Codes: Patient History: CHEST PAIN, DIFFICULTY IN BREATHING, ELEVATED CHOLESTEROL LEVELS, PRIOR SMOKER, PRIOR [place], PRIOR CATH WITH STENTING X 2 Medications: Meds past 24 hrs: Pretest Chest Pain: STRESS TEST Tramaine Protocol Exercise Duration (min:sec): 10:[address] Depressions (mm): Angina Score: Adams Score: Resting HR (bpm): 56 Peak HR (bpm): 135 Resting BP (mmHg): 125 / 80 Peak BP (mmHg): 198 / 76 MPHR: 156 Target HR: 133 % MPHR: 87 METS: 12.1 Total Dose: Peak Dose: Atropine: Double Product: 47210 BP Response: Stress Termination: MAX EXERTION/TARGET HR Stress Symptoms: SLIGHT DIZZINESS Stress Summary: ECG ANALYSIS Resting ECG: Normal sinus rhythm normal axis normal intervals Stress ECG: Patient exercised on Tramaine protocol for 10 and half minutes achieving 85% of predicted maximal heart rate without chest pain or diagnostic ST segment depression At peak exercise there was [address] segment depression noted in inferolateral leads CONCLUSIONS Excellent exercise tolerance Abnormal stress test by EKG criteria Cardiolite portion of the stress test will be reported separately Dr. Agustin Bedoya MD (Electronically Signed) Final Date: 16 January 2024 11:45
--- NOTE | 2024-01-16 12:49 | NM ---
EXAMINATION TYPE: NM stress cardiolite complete DATE OF EXAM: 01/16/2024 COMPARISON: NONE CLINICAL INDICATION: Male, 63 years old with history of chest pain; TECHNIQUE: After the intravenous administration of 10.5 mCi Tc 99m Sestamibi - Rest images obtained 45 minutes post injection. The patient exercised using a WALKER protocol and 1 minute prior to peak exercise was injected with 25.2 mCi Tc 99m Sestamibi - Stress images obtained 20 minutes post injecti on. FINDINGS: Targeted heart rate (133 BPM) was achieved during performance of the study (135 bpm achieved). Total exercise time 10 minutes 24 seconds. Review of stress and rest SPECT images demonstrates no large fix ed perfusion defect involving the mid to basal inferior wall. This may accentuate slightly along the mid inferior wall on stress. No other reversibility is seen. Gated analysis shows normal wall motion with an estimated left ventricular ejection fraction of 66 %. TID calculated at 0.4, within normal l imits. IMPRESSION: 1. Large fixed defect mid to basal inferior wall. Findings may be on the basis of prominent diaphragm atic attenuation artifact. Correlate for history of prior infarct here. 2. Possible small area of anai-infarct ischemia along the mid inferior wall on polar maps if there is a history of prior infarct.
[2024-01-16] MEDS ORDERED: PRASUGREL 10 MG TAB PO SCH (21:00)
[2024-01-16] MEDS ORDERED: ATORVASTATIN 40 MG TAB PO SCH (21:00)
[2024-01-16] MEDS ORDERED: ASPIRIN 81 MG PO SCH (21:00)
== END 2024-01-16 14:30 | disposition home or self-care (01) ==
LOC: EC 17:51 → 6NMEDSUR 20:24
PROVIDERS: ADMIT Family Medicine; ATTEND Family Medicine
DX: R07.89 Other chest pain (principal); I25.2 Old myocardial infarction; I25.10 Atherosclerotic heart disease of native coronary artery without angina pectoris; E66.9 Obesity, unspecified; E78.5 Hyperlipidemia, unspecified; G47.33 Obstructive sleep apnea (adult) (pediatric); R00.1 Bradycardia, unspecified; Z95.5 Presence of coronary angioplasty implant and graft; Z79.02 Long term (current) use of antithrombotics/antiplatelets; Z99.89 Dependence on other enabling machines and devices; Z68.30 Body mass index [BMI] 30.0-30.9, adult; Z79.899 Other long term (current) drug therapy; Z79.82 Long term (current) use of aspirin; Z88.0 Allergy status to penicillin; Z87.891 Personal history of nicotine dependence
CPT/HCPCS: 36415; 93005; 93017; 85379; 80061; 80053; 82150; 83690; 83735; 84484 ×2; 85025; 85610; 85730; 71046; 78452; G0378 ×2; A9500; 99285

== ENCOUNTER 2024-03-28 17:27 | Emergency (ER) | payer BC ==
--- NOTE | 2024-03-28 17:37 | ED ---
General Adult HPI <Julius Duffy - Last Filed: 03/28/24 17:37> - General Source: patient, RN notes reviewed, old records reviewed <Jose Ambrocio - Last Filed: 03/28/24 22:26> - General Stated complaint: Right knee injury Time Seen by Provider: 03/28/24 17:29 - History of Present Illness Initial comments: Quick note 63-year-old male presented to the ED with a chief complaint of right knee pain. Patient states over the past few days has had twinges of pain in his right knee. States today when he went into his garage has steps leading down. States immediately when he placed his right knee on a step felt pain in his knee. Since then, states he has been able to ambulate however with significant pain. (Julius Duffy) Patient is a 63-year-old male who presents emergency department complaining of right knee pain. Patient was stepping down steps when his step normally and felt instant pain in his right knee. Did not fall. No obvious traumatic injury. Presents here for further evaluation. Injury occurred late earlier today. Denies any numbness. Endorses pain with movement of the right knee. Denies any back pain or pelvis pain. No other acute complaints. Presents for further evaluation.Patient originally seen as a quick note. (Jose Ambrocio) - Related Data Home Medications Medication Instructions Recorded Confirmed Ascorbic Acid [Vitamin C] 1,000 mg PO HS 03/04/23 01/15/24 Cyanocobalamin (Vitamin B-12) 1,000 mcg PO HS 03/04/23 01/15/24 [Vitamin B-12] Psyllium Husk [Metamucil] 0.4 gm PO HS 03/04/23 01/15/24 Cholecalciferol [Vitamin D3 (25 25 mcg PO HS 01/15/24 01/15/24 Mcg = 1000 Iu)] Prasugrel [Effient] 10 mg PO HS 01/15/24 01/15/24 Rosuvastatin Calcium [Crestor] 20 mg PO HS 01/15/24 01/15/24 Previous Rx's Medication Instructions Recorded Nitroglycerin Sl Tabs [Nitrostat] 0.4 mg SUBLINGUAL Q5M PRN #100 tab 03/06/23 Aspirin EC [Ecotrin Low Dose] 81 mg PO HS #30 tab 03/12/23 Allergies Allergy/AdvReac Type Severity Reaction Status Date / Time Penicillins AdvReac Nausea & Verified 03/28/24 18:20 Vomiting & Diarrhea Review of Systems ROS Other: All systems not noted in ROS Statement are negative. <Julius Duffy - Last Filed: 03/28/24 17:37> ROS Other: All systems not noted in ROS Statement are negative. <Jose Ambrocio - Last Filed: 03/28/24 22:26> ROS Statement: Those systems with pertinent positive or pertinent negative responses have been documented in the HPI. Review of Systems: CONST: Denies fever EYES: Denies blurry vision ENT: Denies nasal congestion C/V: Denies Chest pain RESP: Denies shortness of breath GI: Denies abdominal pain : Denies dysuria SKIN: Denies rash. MSK: Endorses right knee pain NEURO: Denies headache (Jose Ambrocio) Past Medical History Past Medical History: Chest Pain / Angina, Hyperlipidemia, Sleep Apnea/C PAP/BIPAP History of Any Multi-Drug Resistant Organisms: None Reported Past Surgical History: Orthopedic Surgery Additional Past Surgical History / Comment(s): right rotator cuff Past Psychological History: No Psychological Hx Reported Smoking Status: Former smoker Past Alcohol Use History: Rare Past Drug Use History: None Reported - Past Family History Father Family Medical History: CVA/TIA Mother Family Medical History: Dementia <Julius Duffy - Last Filed: 03/28/24 17:37> General Exam <Julius Duffy - Last Filed: 03/28/24 17:37> <Jose Ambrocio - Last Filed: 03/28/24 22:26> - General Exam Comments Initial Comments: Visual Physical Exam General: Well-appearing, nontoxic, no acute distress. Head: Normocephalic, atraumatic Eyes: PERRLA, EOMI ENT: Airway patent Chest: Nonlabored breathing Skin: No visual rash, normal skin tone Neuro: Alert and oriented 3 Musculoskeletal: No gross abnormalities (Julius Duffy) General: Appears in mild distress. HEAD: Normal with no signs of head trauma. EYES: EOMI. ENT: Hearing grossly intact. RESPIRATORY: No respiratory distress. C/V: Regular rate and rhythm. ABD: Abdomen is nondistended. EXT: No obvious deformity. Tenderness to palpation of the right knee. Pain worse with flexion and extension of the knee. Able to hold right leg in full extension against gravity. Tenderness appears to be along bilateral joint lines. Pain with varus and valgus stress. Negative anterior and posterior drawer testing. No pelvis tenderness on palpation. SKIN: No rashes or lesions observed on exposed skin. NEURO: Alert and oriented. (Jose Ambrocio) Course Vital Signs 03/28/24 03/28/24 18:13 20:49 Temperature 98.4 F 97.6 F Pulse Rate 61 55 L Respiratory 18 16 Rate Blood Pressure 151/79 157/89 O2 Sat by Pulse 96 96 Oximetry Medical Decision Making <Julius Duffy - Last Filed: 03/28/24 17:37> <Jose Ambrocio - Last Filed: 03/28/24 22:26> - Medical Decision Making Quicknote portion performed. Signed Julius Duffy PA-C (Julius Duffy) Was pt. sent in by a medical professional or institution ([facility], DIE [facility]EL[facility], urgent care, hospital, or jail...) When possible be specific @ -No Did you speak to anyone other than the patient for history (EMS, parent, family, police, friend...)? What history was obtained from this source @ -No Did you review nursing and triage notes (agree or disagree)? Why? @ -I reviewed and agree with nursing and triage notes Were old charts reviewed (outside hosp., previous admission, EMS record, old EKG, old radiological studies, urgent care reports/EKG's, jail records)? Report findings @ -No old charts were reviewed Differential Diagnosis (chest pain, altered mental status, abdominal pain women, abdominal pain men, vaginal bleeding, weakness, fever, dyspnea, syncope, headache, dizziness, GI bleed, back pain, seizure, CVA, palpatations, mental health, musculoskeletal)? @ -Differential Musculoskeletal Muscular strain, contusion, ligament sprain, fracture, arthritis, septic arthritis, bursitis, cellulitis, muscle spasm, nerve compression, DVT, arterial occlusion, herpes zoster, electrolyte abnormality, tumor.... This is not meant to be in all inclusive list EKG interpreted by me (3pts min.). @ -None done X-rays interpreted by me (1pt min.). @ -Right knee x-ray reveals no obvious traumatic injury. Arthritis present. CT interpreted by me (1pt min.). @ -None done U/S interpreted by me (1pt. min.). @ -None done What testing was considered but not performed or refused? (CT, X-rays, U/S, labs)? Why? @ -None What meds were considered but not given or refused? Why? @ -None Did you discuss the management of the patient with other professionals (professionals i.e. , PA, DIE WELDER, lab, RT, psych nurse, social media content manager, extension service specialist, teacher, customs patrol officer, disease case manager)? Give summary @ -No Was smoking cessation discussed for >3mins.? @ -No Was critical care preformed (if so, how long)? @ -No Were there social determinants of health that impacted care today? How? (Homelessness, low income, unemployed, alcoholism, drug addiction, transportation, low edu. Level, literacy, decrease access to med. care, halfway, rehab)? @ -No Was there de-escalation of care discussed even if they declined (Discuss DNR or withdrawal of care, Hospice)? DNR status @ -No What co-morbidities impacted this encounter? (DM, HTN, Smoking, COPD, CAD, Cancer, CVA, ARF, Chemo, Hep., AIDS, mental health diagnosis, sleep apnea, morbid obesity)? @ -None Was patient admitted / discharged? Hospital course, mention meds given and route, prescriptions, significant lab abnormalities, going to OR and other pertinent info. @ -Based on the patient's presentation and physical exam, presents with right knee pain. Patient originally seen as a quick note. I evaluate the patient when he was placed in a room. Right knee x-ray negative for any obvious traumatic injury. He will be given a [place] for pain. Also recommended a knee immobilizer as well as crutches. Patient was in agreement this plan. Patient given a starter pack of Tylenol 3. Patient was in agreement this plan. Vital signs within acceptable limits. He will be given orthopedics follow-up. I instructed the patient to follow up with their PCP in the next 1-3 days. I provided contact information for follow up with orthopedics. I explained that the patient should return to the emergency department if they experience any worsening symptoms. Strict return precautions were discussed with the patient. The patient expressed understanding of these instructions. I answered all questions that the patient had. The patient was discharged home in good c ondition with their prescriptions and follow up information.Discussed RICE. I forgot to provide the patient with follow-up with orthopedics in his discharge paperwork, therefore I did give him a phone call at home and provided the contact information for Dr. Sanabria who is on-call. Patient expressed understanding. Undiagnosed new problem with uncertain prognosis? @ -No Drug Therapy requiring intensive monitoring for toxicity (Heparin, Nitro, Insulin, Cardizem)? @ -No Were any procedures done? @ -No Diagnosis/symptom? @ -Right knee sprain Acute, or Chronic, or Acute on Chronic? @ -Acute Uncomplicated (without systemic symptoms) or Complicated (systemic symptoms)? @ -Uncomplicated Side effects of treatment? @ -No Exacerbation, Progression, or Severe Exacerbation? @ -No Poses a threat to life or bodily function? How? (Chest pain, [place], [place], pneumonia, PE, COPD, DKA, ARF, appy, cholecystitis, CVA, Diverticulitis, Homicidal, Suicidal, threat to staff... and all critical care pts) @ -Unlikely (Jose Ambrocio) Disposition <Julius Duffy - Last Filed: 03/28/24 17:37> Is patient prescribed a controlled substance at d/c from ED?: No Time of Disposition: 20:15 <Jose Ambrocio - Last Filed: 03/28/24 22:26> Clinical Impression: Right knee sprain Disposition: HOME SELF-CARE Condition: Good Instructions (If sedation given, give patient instructions): Knee Sprain (ED) Referrals: Aries Uriarte DO [Primary Care Provider] - 1-2 days Ant Sanabria MD [Medical Doctor] - 1-2 days
--- NOTE | 2024-03-28 20:09 | XR ---
EXAMINATION TYPE: XR knee complete RT DATE OF EXAM: 03/28/2024 7:02 PM CLINICAL INDICATION:Male, 63 years old with history of r/o fx, dislocation, acute process; [facility] COMPARISON: None. TECHNIQUE: XR knee complete RT; examined in Frontal, lateral and oblique projections. FINDINGS: No evidence of any acute osseous pathology, soft tissue swelling, or joint effusion is no cy. Tricompartmental osteophyte formation involving the femoral condyles, tibial plateau and patella . Mild joint space narrowing. IMPRESSION: 1. No acute osseous pathology. 2. Mild tricompartmental osteoarthritic changes.
[2024-03-28] MEDS: HYDROcodone/APAP 5-325MG 1 EACH TAB PO STA (20:40)
[2024-03-28] MEDS: ACET/COD 300 MG/30 MG STARTER PACK 6 TAB BTL PO STA (20:40)
[2024-03-28 21:36] VITALS: BP 157/89; PULSE 55; RESP 16; TEMP 97.6
== END 2024-03-28 20:51 | disposition home or self-care (01) ==
LOC: EC 17:27
DX: S83.91XA Sprain of unspecified site of right knee, initial encounter (principal); M17.11 Unilateral primary osteoarthritis, right knee; Z88.0 Allergy status to penicillin; Z87.891 Personal history of nicotine dependence; X58.XXXA Exposure to other specified factors, initial encounter
CPT/HCPCS: 73562; 99283; L1830